=== PATIENT | male | born 1955 | race Caucasian/White ===

== ENCOUNTER 2019-01-03 09:29 | Outpatient (CLI) | payer MEDICARE ==
--- NOTE | 2019-01-03 12:06 | HP ---
HISTORY OF PRESENT ILLNESS: Mr. Tony Chase is a very pleasant 63-year-old gentleman, who presents to the [facility] for evaluation of an ulceration of the plantar surface of the right forefoot. The ulceration is located over the right medial forefoot. The patient states that the ulceration began approximately 2 weeks ago when he was walking in socks without shoes. The patient states that he noted that his sock was bloody and then noted the presence of the wound over the right medial plantar forefoot. The patient states that he has been receiving dressing changes 3 times per week with the assistance of Home Health for venous ulcerations. The patient specifically has been receiving dressing changes of Aquacel for the venous ulcerations. When the wound began, he states the ulceration of the right medial plantar forefoot was also dressed with Aquacel. The patient was referred to the Wound Center by Dr. Almanzar on 12/27/2018. PAST MEDICAL HISTORY: 1. Diabetes mellitus. 2. Hypertension. 3. Coronary artery disease. 4. Obstructive sleep apnea. 5. Peripheral vascular disease. 6. Gastroesophageal reflux disease. PAST SURGICAL HISTORY: 1. Coronary artery bypass grafting x4. 2. Bilateral hallux amputations. 3. Left second toe amputation. MEDICATIONS: 1. Torsemide. 2. Jardiance. 3. Coreg. 4. Pepcid. 5. Metformin. 6. Plavix. 7. Zetia. 8. Atorvastatin. 9. Gabapentin. 10. Lisinopril. 11. Sertraline. 12. Potassium chloride. 13. Aspirin 81 mg. 14. Chantix. ALLERGIES: PENICILLIN. SOCIAL HISTORY: Social history is significant for tobacco use of 1 to 2 packs of cigarettes per day for 50 years. The patient states that he stopped smoking 4 weeks ago. The patient admits to the moderate consumption of alcohol in the past, specifically in his teens and 20s. FAMILY HISTORY: Family history is significant for coronary artery disease. The patient states that his mother, father, and sister were all diagnosed with coronary artery disease. Family history is also significant for diabetes mellitus. The patient states that his mother and father were both diagnosed with diabetes mellitus. PHYSICAL EXAMINATION: VITAL SIGNS: Temperature 98.7, pulse 65, respirations 22, and blood pressure 141/72. Accu-Chek 142. GENERAL: A 63-year-old gentleman, lying on stretcher in examination room, in no acute distress. HEENT: Normocephalic and atraumatic. NECK: No nuchal rigidity. CHEST: Clear to auscultation. CV: Regular rate and rhythm. ABDOMEN: Soft. EXTREMITIES: An ulceration of the plantar surface of the right medial forefoot is present, which measures approximately 0.3 x 0.5 cm. Granulation tissue is present within the wound margins. Necrotic and nonviable tissue present within the wound margins was debrided with an excisional full-thickness debridement with the use of a curette. Callus desiccated tissue and undermining associated with the ulceration were eliminated with the use of scissors. No purulent drainage is associated with the granulating wound. No erythema of the skin surrounding the wound is present. No maceration of the skin of the periwound is noted. A posterior tibial pulse is easily palpable on the left. [id number] edema of the right lower extremity is appreciated on exam today. NEUROLOGIC: Grossly nonfocal. ASSESSMENT AND PLAN: 1. Ulceration of right plantar medial forefoot as described above. Dressing changes of Aquacel are to be performed 3 times per week after cleansing and irrigation with the assistance of Home Health. Home Health is to continue dressing changes of Aquacel for the venous ulcerations of the right lower leg. No antibiotics will be prescribed today based upon the appearance of the wound. I will see Mr. Chase again in 1 week. The patient understands and is in agreement with the preceding treatment plan. 2. Diabetes mellitus. The patient's Accu-Chek in clinic today is 142. The patient has been told that for optimal wound healing, his blood glucoses should remain below 150. 3. Hypertension. 4. Coronary artery disease. 5. Obstructive sleep apnea. 6. Peripheral vascular disease. 7. Gastroesophageal reflux disease. Job ID: [id number]
[2019-01-03] MEDS ORDERED: Sodium Chloride 0.9% 15 ML NEB ONE (18:00)
== END 2019-01-03 09:30 | disposition home or self-care (01) ==
LOC: WCC 09:29
PROVIDERS: ATTEND Family Medicine
DX: S91.311S Laceration without foreign body, right foot, sequela (principal)
CPT/HCPCS: 11042; 99203; A4218; G0463

== ENCOUNTER 2019-02-12 12:59 | Outpatient (CLI) | payer MEDICARE ==
--- NOTE | 2019-02-12 14:44 | PRG ---
DATE OF SERVICE: 02/12/2019 HISTORY: Mr. Tony Chase is a very pleasant 63-year-old gentleman, who presents to the Wound Center for evaluation of an ulceration of the plantar surface of the right forefoot. The ulceration is located over the right medial forefoot. The patient previously stated that the ulceration began approximately 2 weeks prior to his initial presentation to the Wound Center when he was walking in socks without shoes. The patient stated that he noted that his sock was bloody and then noted the presence of the wound over the right medial plantar forefoot. The patient stated that he had been receiving dressing changes 3 times per week with the assistance of Home Health for venous ulcerations. The patient specifically had been receiving dressing changes of Aquacel for the venous ulcerations. When the wound of the right forefoot was noted, he stated the ulceration of the right medial plantar forefoot was also dressed with Aquacel. The patient was referred to the Wound Center by Dr. Almanzar on 12/27/2018. PHYSICAL EXAMINATION: VITAL SIGNS: Temperature 97.8, pulse 62, respirations 18, and blood pressure 138/62. Accu-Chek 147. EXTREMITIES: An ulceration of the plantar surface of the right medial forefoot is present, which measures approximately 0.9 x 0.6 cm. The dimensions of the wound at the time of the patient's visit on 01/29/2019 were approximately 1.0 x 0.5 cm. Granulation tissue is present within the wound margins. Necrotic and nonviable tissue present within the wound margins was debrided with an excisional full-thickness debridement with the use of a curette. Callus desiccated tissue and undermining at the periphery of the wound were eliminated with the use of scissors. No purulent drainage is associated with the wound. No erythema of the skin surrounding the wound is present. No maceration of the skin of the periwound is noted. A posterior tibial pulse is easily palpable on the right. No significant edema of the right foot or lower leg is present on exam today. ASSESSMENT AND PLAN: 1. Ulceration of right medial plantar forefoot as described above. The venous ulcerations of the right lower leg have healed completely and remain healed. Dressing changes of Xeroform gauze for the right medial plantar forefoot wound will be continued. Webril and the my[employer]arrister Coban 2 Layer Compression System will also be applied to the right foot and lower leg. The preceding dressing changes are to be performed 1 to 2 times per week after cleansing and irrigation with the assistance of Home Health. I will see Mr. Chase again in 2 weeks. 2. Diabetes mellitus. The patient's Accu-Chek in clinic today is 147. The patient has been reminded that for optimal wound healing, his blood glucoses should remain below 150. 3. Hypertension. 4. Coronary artery disease. 5. Obstructive sleep apnea. 6. Peripheral vascular disease. 7. Gastroesophageal reflux disease. Job ID: [id number]
== END 2019-02-12 13:00 | disposition home or self-care (01) ==
LOC: WCC 12:59
PROVIDERS: ATTEND Family Medicine
DX: E11.621 Type 2 diabetes mellitus with foot ulcer (principal); L97.519 Non-pressure chronic ulcer of other part of right foot with unspecified severity; I10 Essential (primary) hypertension; I25.10 Atherosclerotic heart disease of native coronary artery without angina pectoris; G47.33 Obstructive sleep apnea (adult) (pediatric); K21.9 Gastro-esophageal reflux disease without esophagitis; E11.51 Type 2 diabetes mellitus with diabetic peripheral angiopathy without gangrene
CPT/HCPCS: 11042

== ENCOUNTER 2019-02-26 15:10 | Outpatient (CLI) | payer MEDICARE ==
--- NOTE | 2019-02-26 15:04 | PRG ---
DATE OF SERVICE: 02/26/2019 HISTORY: Mr. Tony Chase is a very pleasant 63-year-old gentleman, who presents to the Wound Center for evaluation of an ulceration of the plantar surface of the right forefoot. The ulceration is located over the right medial forefoot. The patient previously stated that the ulceration began approximately 2 weeks prior to his initial presentation to the Wound Center when he was walking in socks without shoes. The patient stated that he noted that his sock was bloody and then noted the presence of the wound over the right medial plantar forefoot. The patient stated that he had been receiving dressing changes 3 times per week with the assistance of Home Health for venous ulcerations. The patient specifically had been receiving dressing changes of Aquacel for the venous ulcerations. When the wound of the right forefoot was noted, he stated, the ulceration of the right medial plantar forefoot was also dressed with Aquacel. The patient was referred to the Wound Center by Dr. Almanzar on 12/27/2018. PHYSICAL EXAMINATION: VITAL SIGNS: Temperature 97.9, pulse 73, respirations 22, and blood pressure 118/76. Accu-Chek 146. EXTREMITIES: An ulceration of the plantar surface of the right medial forefoot is present, which measures approximately 0.6 x 0.8 cm. The dimensions of the wound at the time of the patient's visit on 02/12/2019 were approximately 0.9 x 0.6 cm. Granulation tissue is present within the wound margins. Necrotic and nonviable tissue present within the wound margins was debrided with an excisional full-thickness debridement with the use of a curette. Callus desiccated tissue and undermining at the periphery of the wound were eliminated with the use of scissors. Postdebridement measurements were approximately 1.3 x 0.7 cm. No purulent drainage is associated with the wound. No erythema of the skin surrounding the wound is present. No maceration of the skin of the periwound is noted. No significant edema of the right foot or lower leg is present on exam today. ASSESSMENT AND PLAN: 1. Ulceration of right medial plantar forefoot as described above. The venous ulcerations of the right lower leg have healed completely and remains healed. After copious irrigation of the ulceration of the right medial plantar forefoot with normal saline, MatriStem sheet 3 x 3.5 cm was applied to the wound bed followed by Adaptic, ABD, Webril, and the 3M Coban 2 Layer Compression System. The MatriStem sheet was secured to the periwound with the use of Mastisol and Steri Strips. Orders will be transmitted to Home Health for a dressing change of Adaptic followed by an ABD, Webril, and the 3M Coban 2 Layer Compression System in 1 week. I will see Mr. Chase again in 2 weeks. At this time, consideration will be given to another placement of MatriStem. 2. Diabetes mellitus. The patient's Accu-Chek in clinic today is 146. The patient has been reminded that for optimal wound healing, his blood glucoses should remain below 150. 3. Hypertension. 4. Coronary artery disease. 5. Obstructive sleep apnea. 6. Peripheral vascular disease. 7. Gastroesophageal reflux disease. Job ID: [id number]
[2019-02-26] MEDS ORDERED: Sodium Chloride 0.9% 15 ML NEB ONE (17:24)
== END 2019-02-26 15:11 | disposition home or self-care (01) ==
LOC: WCC 15:10
PROVIDERS: ATTEND Family Medicine
DX: E11.621 Type 2 diabetes mellitus with foot ulcer (principal); L97.419 Non-pressure chronic ulcer of right heel and midfoot with unspecified severity; I10 Essential (primary) hypertension; I25.10 Atherosclerotic heart disease of native coronary artery without angina pectoris; G47.33 Obstructive sleep apnea (adult) (pediatric); I73.9 Peripheral vascular disease, unspecified; K21.9 Gastro-esophageal reflux disease without esophagitis
CPT/HCPCS: A4218; C5275; Q4166-KX-JC

== ENCOUNTER 2019-03-12 15:57 | Outpatient (CLI) | payer MEDICARE ==
--- NOTE | 2019-03-12 14:27 | PRG ---
DATE OF SERVICE: 03/12/2019 HISTORY: Mr. Tony Chase is a very pleasant 63-year-old gentleman, accompanied by his , who presents to the Wound Center for evaluation of an ulceration of the plantar surface of the right forefoot. The ulceration is located over the right medial forefoot. Previously, the patient stated that the ulceration began approximately 2 weeks prior to his initial presentation to the Wound Center when he was walking in socks without shoes. The patient stated that he noted that his sock was bloody and then noted the presence of the wound over the right medial plantar forefoot. The patient stated that he had been receiving dressing changes 3 times per week with the assistance of Home Health for venous ulcerations. The patient specifically had been receiving dressing changes of Aquacel for the venous ulcerations. When the wound of the right forefoot was noted, he stated the ulceration of the right medial plantar forefoot was also dressed with Aquacel. The patient was referred to the Wound Center by Dr. Almanzar on 12/27/2018. The patient is presently receiving treatment with MatriStem sheet for the ulceration over the plantar surface of the right medial forefoot. PHYSICAL EXAMINATION: VITAL SIGNS: Temperature 97.9, pulse 63, respirations 18, and blood pressure 125/59. Accu-Chek 144. EXTREMITIES: An ulceration of the plantar surface of the right medial forefoot is present, which measures approximately 0.3 x 0.4 cm. The dimensions of the wound at the time of the patient's visit on 02/26/2019 were approximately 0.6 x 0.8 cm. Granulation tissue is present within the wound margins. Necrotic and nonviable tissue present within the wound margins was debrided with an excisional full-thickness debridement with the use of a curette. Callus desiccated tissue and undermining at the periphery of the wound were eliminated with the use of scissors. Post debridement measurements were approximately 0.7 x 0.6 cm. No purulent drainage is associated with the wound. No erythema of the skin surrounding the wound is present. No maceration of the skin of the periwound is noted. No significant edema of the right foot or lower leg is present on exam today. MatriStem sheet 3 x 3.5 cm was applied to wound bed followed by Adaptic, 4x4s, Webril, and the 3M Coban 2 Layer Compression System. The MatriStem sheet was secured to the periwound with the use of Mastisol and Steri-Strips. Orders will be transmitted to Home Health for a dressing change of Adaptic followed by 4x4s, Webril, and 3M Coban 2 Layer Compression System in 1 week. I will see Mr. Chase again in 2 weeks. At this time, consideration will be given to another placement of MatriStem. ASSESSMENT AND PLAN: 1. Diabetes mellitus. The patient's Accu-Chek in clinic today is 144. The patient has been reminded that for optimal wound healing, his blood glucoses should remain below 150. 2. Hypertension. 3. Coronary artery disease. 4. Obstructive sleep apnea. 5. Peripheral vascular disease. 6. Gastroesophageal reflux disease. Job ID: [id number]
[~2019-03-12 15:57] MED LIST: Sodium Chloride 0.9% 15 ML NEB ONE
== END 2019-03-12 15:58 | disposition home or self-care (01) ==
LOC: WCC 15:57
PROVIDERS: ATTEND Family Medicine
DX: E11.621 Type 2 diabetes mellitus with foot ulcer (principal); L97.419 Non-pressure chronic ulcer of right heel and midfoot with unspecified severity; I10 Essential (primary) hypertension; I25.10 Atherosclerotic heart disease of native coronary artery without angina pectoris; G47.33 Obstructive sleep apnea (adult) (pediatric); I73.9 Peripheral vascular disease, unspecified; K21.9 Gastro-esophageal reflux disease without esophagitis
CPT/HCPCS: A4218; Q4166-KX-JC

== ENCOUNTER 2019-03-26 14:03 | Outpatient (CLI) | payer MEDICARE ==
--- NOTE | 2019-03-26 14:46 | PRG ---
DATE OF SERVICE: 03/26/2019 HISTORY: Mr. Tony Chase is a very pleasant 63-year-old gentleman, accompanied by his , who presents to the Wound Center for evaluation of an ulceration of the plantar surface of the right forefoot. The ulceration is located over the right medial forefoot. Previously, the patient stated that the ulceration began approximately 2 weeks prior to his initial presentation to the Wound Center when he was walking in socks without shoes. The patient stated that he noted that his sock was bloody and then noted the presence of the wound over the right medial plantar forefoot. The patient stated that he had been receiving dressing changes 3 times per week with the assistance of Home Health for venous ulcerations. The patient specifically had been receiving dressing changes of Aquacel for the venous ulcerations. When the wound of the right forefoot was noted, he stated the ulceration of the right medial plantar forefoot was also dressed with Aquacel. The patient was referred to the Wound Center by Dr. Almanzar on 12/27/2018. The patient has received treatment with MatriStem sheet for the ulceration over the plantar surface of the right medial forefoot. PHYSICAL EXAMINATION: VITAL SIGNS: Temperature 98.2, pulse 54, respirations 19, and blood pressure 137/63. Accu-Chek 133. EXTREMITIES: An ulceration of the plantar surface of the right medial forefoot is present, which measures approximately 0.4 x 0.6 cm. The dimensions of the wound at the time of the patient's visit on 03/12/2019 were approximately 0.3 x 0.4 cm. Granulation tissue is present within the wound margins. Necrotic and nonviable tissue present within the wound margins is debrided with an excisional full-thickness debridement with the use of a curette. Callus desiccated tissue and undermining at the periphery of the wound are eliminated with the use of scissors. Post-debridement measurements are approximately 0.6 x 0.8 cm. No purulent drainage is associated with the wound. No erythema of the skin surrounding the wound is present. No maceration of the skin of the periwound is noted. No significant edema of the right foot or lower leg is present on exam today. ASSESSMENT AND PLAN: 1. Ulceration of right medial plantar forefoot as described above. The venous ulcerations of the right lower leg have healed completely and remained healed. Promogran will be applied to the ulceration of the plantar surface of the right forefoot today. Secondary dressings will consist of foam, followed by Webril and the 3M Coban 2 Layer Compression System. Orders will be transmitted to Home Health for the preceding dressing changes 2 times per week after cleansing and irrigation. Plain films of the right foot will be obtained today. If plain films reveal no findings consistent with osteomyelitis, I have explained to the patient and his consideration will need to be given to MRI of the right foot. The patient states he will see his ethical hacker for new diabetic shoes with inserts. I will see Mr. Chase again after imaging of the right foot is complete. At this time, consideration will be given to the resumption of treatment with a skin substitute. The patient and his understand and are in agreement with the preceding treatment plan. 2. Diabetes mellitus. The patient's Accu-Chek in clinic today is 133. The patient has been reminded that for optimal wound healing, his blood glucoses should remain below 150. 3. Hypertension. 4. Coronary artery disease. 5. Obstructive sleep apnea. 6. Peripheral vascular disease. 7. Gastroesophageal reflux disease. Job ID: [id number]
--- NOTE | 2019-03-26 15:06 | RAD ---
3 views of the right foot: 03/26/2019 HISTORY: Chronic wound, possible osteomyelitis FINDINGS: There is prominent degenerative change involving the midfoot and subtalar joint. There is e nthesophyte formation at the insertion of the Achilles tendon and origin of the plantar aponeurosis. The patient is status post resection of the first digit at the distal aspect of the first metatarsal. Just distal to the residual first metatarsal is a linear metallic soft tissue foreign body measuring 8 mm. Soft tissues of the second through fifth toes are not well assessed distally secondar y to technique. No discrete bone destruction. IMPRESSION: Postoperative change as detailed above. Suboptimal assessment of the soft tissues involvi ng the distal aspect of the second through fifth toes. Metallic soft tissue foreign body seen just distal to the residual first metatarsal. If there is clinical concern for osteomyelitis, MRI advised.
== END 2019-03-26 14:04 | disposition home or self-care (01) ==
LOC: WCC 14:03 → RAD 14:04
PROVIDERS: ATTEND Family Medicine
DX: E11.621 Type 2 diabetes mellitus with foot ulcer (principal); L97.529 Non-pressure chronic ulcer of other part of left foot with unspecified severity; Z98.890 Other specified postprocedural states
CPT/HCPCS: A4218

== ENCOUNTER 2019-04-09 13:49 | Outpatient (CLI) | payer MEDICARE ==
--- NOTE | 2019-04-09 14:29 | PRG ---
DATE OF SERVICE: 04/09/2019 HISTORY: Mr. Tony Chase is a very pleasant 63-year-old gentleman, accompanied by his who presents to the Wound Center for evaluation of an ulceration of the plantar surface of the right forefoot. Since the patient's last visit, Mr. Chase has undergone MRI of the right foot. The patient states that at the time of his visit with Dr. Davenport also since the patient was last seen in the Wound Center, he was told by Dr. Davenport that the MRI of the right foot showed no findings consistent with osteomyelitis. The patient states that when he was seen by Dr. Davenport, his shoes with inserts were adjusted so as to provide for greater offloading of the right foot in the region of the wound. The patient continues to receive assistance with dressing changes by Home Health. PHYSICAL EXAMINATION: VITAL SIGNS: Temperature 98.1, pulse 50, respirations 18, blood pressure 121/54. Accu-Chek 140. EXTREMITIES: An ulceration of the plantar surface of the right medial forefoot is present, which measures approximately 0.6 x 0.8 cm. The depth of the wound is approximately 1.2 cm. Granulation tissue is present within the wound margins. No purulent drainage is associated with the wound. No erythema of the skin surrounding the wound is present. No maceration of the skin of the periwound is noted. No significant edema of the right foot or lower leg is present on exam today. After copious irrigation of the wound bed with normal saline, EpiFix 18 mm was applied to the wound bed of the ulceration followed by the wound VAC. ASSESSMENT AND PLAN: 1. Ulceration of right medial plantar forefoot as described above. EpiFix was applied to the wound bed of the ulceration today. The patient will receive negative pressure therapy in conjunction with treatment with EpiFix. An Danny bandage will be applied to the right foot and lower leg over the wound VAC. I will see Mr. Chase again in 1 week. At this time, consideration will be given to another placement of EpiFix. The results of the MRI of the right foot will also be obtained. 2. Diabetes mellitus. The patient's Accu-Chek in clinic today is 140. The patient has been reminded that for optimal wound healing his blood glucoses should remain below 150. 3. Hypertension. 4. Coronary artery disease. 5. Obstructive sleep apnea. 6. Peripheral vascular disease. 7. Gastroesophageal reflux disease. Job ID: [id number]
== END 2019-04-09 13:50 | disposition home or self-care (01) ==
LOC: WCC 13:49
PROVIDERS: ATTEND Family Medicine
DX: E11.621 Type 2 diabetes mellitus with foot ulcer (principal); L97.519 Non-pressure chronic ulcer of other part of right foot with unspecified severity; I10 Essential (primary) hypertension; I25.10 Atherosclerotic heart disease of native coronary artery without angina pectoris; G47.33 Obstructive sleep apnea (adult) (pediatric); I73.9 Peripheral vascular disease, unspecified; K21.9 Gastro-esophageal reflux disease without esophagitis
CPT/HCPCS: A4218; Q4186-KX-JC

== ENCOUNTER 2019-04-16 14:09 | Outpatient (CLI) | payer MEDICARE ==
--- NOTE | 2019-04-16 17:48 | PRG ---
DATE OF SERVICE: 04/16/2019 HISTORY: Mr. Tony Chase is a very pleasant 63-year-old gentleman, accompanied by his , who presents to the Wound Center for evaluation of an ulceration of the plantar surface of the right forefoot. MRI of the right foot was recently obtained, which showed no findings suggestive of osteomyelitis of the forefoot. At the time of the patient's last visit, the patient stated that when he was recently seen by Dr. Davenport, his shoes with inserts were adjusted so as to provide for greater offloading of the right foot in the region of his wound. The patient is presently receiving treatment with EpiFix in conjunction with negative pressure therapy for the ulceration of the right medial plantar forefoot. PHYSICAL EXAMINATION: VITAL SIGNS: Temperature 98.1, pulse 55, respirations 20, blood pressure 128/58. Accu-Chek 229. EXTREMITIES: An ulceration of the plantar surface of the right medial forefoot is present, which measures approximately 0.7 x 0.4 cm. The dimensions of the wound at the time of the patient's last visit were approximately 0.6 x 0.8 cm. The depth of the wound is approximately 1.3 cm. Granulation tissue is present within the wound margins. No purulent drainage is associated with the wound. No erythema of the skin surrounding the wound is present. No maceration of the skin of the periwound is noted. No significant edema of the right foot or lower leg is present on exam today. After copious irrigation of the wound bed with normal saline, EpiFix, 2 x 2 cm, was applied to the wound bed of the ulceration followed by the wound VAC. ASSESSMENT AND PLAN: 1. Ulceration of right medial plantar forefoot as described above. EpiFix was applied to the wound bed of the ulceration today. The patient will continue to receive negative pressure therapy in conjunction with treatment with EpiFix. The 3M Coban 2 Layer Compression System will be applied to the right foot and lower leg over the wound VAC. I will see Mr. Chase again in 1 week. At this time, consideration will be given to another placement of EpiFix in conjunction with negative pressure therapy. 2. Diabetes mellitus. The patient's Accu-Chek in clinic today is 229. The patient has been reminded that for optimal wound healing, his blood glucoses should remain below 150. 3. Hypertension. 4. Coronary artery disease. 5. Obstructive sleep apnea. 6. Peripheral vascular disease. 7. Gastroesophageal reflux disease. Job ID: [id number]
== END 2019-04-16 14:10 | disposition home or self-care (01) ==
LOC: WCC 14:09
PROVIDERS: ATTEND Family Medicine
DX: E11.621 Type 2 diabetes mellitus with foot ulcer (principal); L97.419 Non-pressure chronic ulcer of right heel and midfoot with unspecified severity; I10 Essential (primary) hypertension; I25.10 Atherosclerotic heart disease of native coronary artery without angina pectoris; G47.33 Obstructive sleep apnea (adult) (pediatric); I73.9 Peripheral vascular disease, unspecified; K21.9 Gastro-esophageal reflux disease without esophagitis
CPT/HCPCS: A4218

== ENCOUNTER 2019-04-23 14:07 | Outpatient (CLI) | payer MEDICARE ==
[2019-04-23] MEDS ORDERED: Sodium Chloride 0.9% 15 ML NEB ONE (15:00)
--- NOTE | 2019-04-23 16:43 | PRG ---
DATE OF SERVICE: 04/23/2019 SUBJECTIVE: Mr. Tony Chase is a very pleasant 63-year-old gentleman, accompanied by his , who presents [facility] for evaluation of an ulceration of the plantar surface of the right forefoot. MRI of the right foot was obtained on 04/02/2019, which showed no overt noncontrast MR findings suggestive of osteomyelitis. The patient has been seen by Dr. Davenport and his shoes with inserts adjusted, so as to provide for greater offloading of the right foot in the region of his wound. The patient is currently receiving treatment with EpiFix in conjunction with negative pressure therapy for the ulceration of the right medial plantar forefoot. OBJECTIVE: VITAL SIGNS: Temperature 97.6, pulse 49, respirations 24, blood pressure 132/62. Accu-Chek 161. EXTREMITIES: An ulceration of the plantar surface of the right medial forefoot is present, which measures approximately 0.6 x 0.4 cm. The dimensions of the wound at the time of the patient's last visit were approximately 0.7 x 0.4 cm. The depth of the wound is approximately 0.7 cm. The depth of the wound at the time of the patient's last visit was approximately 1.3 cm. Granulation tissue is present within the wound margins. No purulent drainage is associated with the wound. No erythema of the skin surrounding the wound is present. Maceration of the skin of the periwound is noted. No significant edema of the right foot or lower leg is present on exam today. ASSESSMENT AND PLAN: 1. Ulceration of right medial plantar forefoot as described above. In view of the maceration of the skin of the periwound of the right medial plantar forefoot ulceration, dressing changes of Hydrofera Blue, followed by an ABD and 3M Coban 2 Layer Compression System will be initiated today. The patient is to receive the preceding dressing changes 2 times per week after cleansing and irrigation with the assistance of Home Health. I will see Mr. Chase again in 2 weeks. At this time, consideration will be given to the resumption of treatment with EpiFix in conjunction with negative pressure therapy. The patient will be seen by Dr. Davenport in 1 week. 2. Diabetes mellitus. The patient's Accu-Chek in clinic today is 161. The patient has been reminded that for optimal wound healing, his blood glucoses should remain below 150. 3. Hypertension. 4. Coronary artery disease. 5. Obstructive sleep apnea. 6. Peripheral vascular disease. 7. Gastroesophageal reflux disease. Job ID: [id number]
== END 2019-04-23 14:08 | disposition home or self-care (01) ==
LOC: WCC 14:07
PROVIDERS: ATTEND Family Medicine
DX: E11.621 Type 2 diabetes mellitus with foot ulcer (principal); L97.419 Non-pressure chronic ulcer of right heel and midfoot with unspecified severity; I10 Essential (primary) hypertension; I25.10 Atherosclerotic heart disease of native coronary artery without angina pectoris; I73.9 Peripheral vascular disease, unspecified; K21.9 Gastro-esophageal reflux disease without esophagitis; G47.33 Obstructive sleep apnea (adult) (pediatric)
CPT/HCPCS: A4218

== ENCOUNTER 2019-05-07 14:02 | Outpatient (CLI) | payer MEDICARE ==
--- NOTE | 2019-05-07 14:56 | PRG ---
DATE OF SERVICE: 05/07/2019 HISTORY: Mr. Tony Chase is a very pleasant 63-year-old gentleman, accompanied by his , who presents to the [facility] for evaluation of an ulceration of the plantar surface of the right forefoot. MRI of the right foot was obtained on 04/02/2019, which showed no overt noncontrast MR findings suggestive of osteomyelitis. The patient has been seen by Dr. Davenport and his shoes with inserts adjusted, so as to provide for greater offloading of the right foot in the region of his wound. The patient has received treatment with EpiFix in conjunction with negative pressure therapy for the ulceration of the right medial plantar forefoot. PHYSICAL EXAMINATION: VITAL SIGNS: Temperature 98.3, pulse 50, respirations 26, blood pressure 151/68. Accu-Chek 120. EXTREMITIES: An ulceration of the plantar surface of the right medial forefoot is present, which measures approximately 0.6 x 0.6 cm. The depth of the wound is approximately 0.5 cm. Granulation tissue is present within the wound margins. Necrotic and nonviable tissue present within the wound margins was debrided with an excisional full-thickness debridement with the use of a curette. Desiccated tissue at the periphery of the wound was excised with the use of scissors. No purulent drainage is associated with the wound. No erythema of the skin surrounding the wound is present. No maceration of the skin of the periwound is noted. No significant edema of the right foot or lower leg is present on exam today. After copious irrigation of the wound bed with normal saline, EpiFix 18 mm was applied to the wound bed, followed by Adaptic, an ABD, Webril, and the 3M Coban 2 Layer Compression System. The EpiFix was secured to the wound bed and periwound with the use of Steri-Strips and Mastisol. ASSESSMENT AND PLAN: 1. Ulceration of right medial plantar forefoot as described above. EpiFix was applied to the ulceration of the right medial plantar forefoot today, followed by Adaptic, an ABD, Webril, and the 3M Coban 2 Layer Compression System. As stated above, the EpiFix was secured to the wound bed and periwound with the use of Steri-Strips and Mastisol. I will see Mr. Chase again in 1 week. At this time, consideration will be given to another placement of EpiFix. 2. Diabetes mellitus. The patient's Accu-Chek in clinic today is 120. The patient has been reminded that for optimal wound healing, his blood glucoses should remain below 150. 3. Hypertension. 4. Coronary artery disease. 5. Obstructive sleep apnea. 6. Peripheral vascular disease. 7. Gastroesophageal reflux disease. Job ID: [id number]
[2019-05-07] MEDS ORDERED: Sodium Chloride 0.9% 15 ML NEB ONE (16:54)
== END 2019-05-07 14:03 | disposition home or self-care (01) ==
LOC: WCC 14:02
PROVIDERS: ATTEND Family Medicine
DX: E11.621 Type 2 diabetes mellitus with foot ulcer (principal); L97.419 Non-pressure chronic ulcer of right heel and midfoot with unspecified severity; I10 Essential (primary) hypertension; I25.10 Atherosclerotic heart disease of native coronary artery without angina pectoris; G47.33 Obstructive sleep apnea (adult) (pediatric); I73.9 Peripheral vascular disease, unspecified; K21.9 Gastro-esophageal reflux disease without esophagitis
CPT/HCPCS: A4218

== ENCOUNTER 2019-05-17 15:49 | Outpatient (CLI) | payer MEDICARE ==
--- NOTE | 2019-05-17 16:47 | PRG ---
DATE OF SERVICE: 05/17/2019 HISTORY: Mr. Tony Chase is a very pleasant 63-year-old gentleman accompanied by his , who presents to the [facility]ound Center for evaluation of an ulceration of the plantar surface of the right forefoot. MRI of the right foot was obtained on 04/02/2019, which showed no overt noncontrast MR findings suggestive of osteomyelitis. The patient has been seen by Dr. Davenport and his shoes with inserts adjusted, so as to provide for greater offloading of the right foot in the region of the wound. The patient has received treatment with EpiFix in conjunction with negative pressure therapy for the ulceration of the right medial plantar forefoot. Presently, the patient is receiving treatment with EpiFix in conjunction with the 3M Coban 2 Layer Compression System. PHYSICAL EXAMINATION: VITAL SIGNS: Temperature 97.7, pulse 53, respirations 19, blood pressure 154/65, Accu-Chek . EXTREMITIES: An ulceration of the plantar surface of the right medial forefoot is present, which measures approximately 0.6 x 0.4 cm. The depth of the wound is approximately 0.5 cm. Granulation tissue is present within the wound margins. Necrotic and nonviable tissue present within the wound margins was debrided with an excisional full-thickness debridement with the use of a curette. Callus and desiccated tissue and undermining at the periphery of the wound were eliminated with the use of scissors. No purulent drainage is associated with the wound. No erythema of the skin surrounding the wound is present. No maceration of the skin of the periwound is noted. No significant edema of the right foot or lower leg is present on exam today. After copious irrigation of the wound bed with normal saline, EpiFix 18 mm was applied to the wound bed followed by Adaptic, an ABD, Webril, and the 3M Coban 2 Layer Compression System. EpiFix was secured to the wound bed and periwound with the use of Steri-Strips and Mastisol. ASSESSMENT AND PLAN: 1. Ulceration of right medial plantar forefoot as described above. EpiFix was applied to the ulceration of the right medial plantar forefoot today followed by Adaptic, an ABD, Webril, and the 3M Coban 2 Layer Compression System. As stated above, the EpiFix was secured to the wound bed and periwound with the use of Steri-Strips and Mastisol. I will see Mr. Chase again in 1 week. At this time, consideration will be given to another placement of EpiFix. 2. Diabetes mellitus. The patient's Accu-Chek in clinic today is . The patient has been reminded that for optimal wound healing, his blood glucoses should remain below 150. 3. Hypertension. 4. Coronary artery disease. 5. Obstructive sleep apnea. 6. Peripheral vascular disease. 7. Gastroesophageal reflux disease. Job ID: [id number]
== END 2019-05-17 15:50 | disposition home or self-care (01) ==
LOC: WCC 15:49
PROVIDERS: ATTEND Family Medicine
DX: E11.621 Type 2 diabetes mellitus with foot ulcer (principal); L97.519 Non-pressure chronic ulcer of other part of right foot with unspecified severity; I25.10 Atherosclerotic heart disease of native coronary artery without angina pectoris; G47.33 Obstructive sleep apnea (adult) (pediatric); E11.51 Type 2 diabetes mellitus with diabetic peripheral angiopathy without gangrene; K21.9 Gastro-esophageal reflux disease without esophagitis; I10 Essential (primary) hypertension
CPT/HCPCS: A4218; Q4186-KX-JC

== ENCOUNTER 2019-05-24 14:02 | Outpatient (CLI) | payer MEDICARE ==
--- NOTE | 2019-05-24 15:50 | PRG ---
DATE OF SERVICE: 05/24/2019 HISTORY: Mr. Tony Chase is a very pleasant 63-year-old gentleman, accompanied by his who presents to the Wound Center for evaluation of an ulceration of the plantar surface of the right forefoot. MRI of the right foot was obtained on 04/02/2019, which showed no overt noncontrast MR findings suggestive of osteomyelitis. The patient has been seen by Dr. Davenport and issues with inserts adjusted, so as to provide for greater offloading of the right foot in the region of the wound. The patient has received treatment with EpiFix in conjunction with negative pressure therapy for the ulceration of the right medial plantar forefoot. Currently, the patient is receiving treatment with EpiFix in conjunction with the 3M Coban 2 Layer Compression System. OBJECTIVE: VITAL SIGNS: Temperature 98.0, pulse 53, respirations 18, blood pressure 119/57. Accu-Chek 147. EXTREMITIES: An ulceration of the plantar surface of the right medial forefoot is present, which measures approximately 0.6 x 0.4 cm. Granulation tissue is present within the wound margins. Necrotic and nonviable tissue present within the wound margins was debrided with an excisional full-thickness debridement with the use of a curette. Callus desiccated tissue and undermining at the periphery of the wound were eliminated with the use of scissors. No purulent drainage is associated with the wound. No erythema of the skin surrounding the wound is present. No maceration of the skin of the periwound is noted. No significant edema of the right foot or lower leg is present on exam today. A new wound over the dorsum of the right medial foot is present which measures approximately 0.6 x 0.3 cm. A small amount of granulation tissue is visible within the wound margins. No purulent drainage is associated with the wound. No maceration of the skin of the periwound is noted. No significant edema of the right foot or lower leg is present on exam today. After copious irrigation of both wound beds with normal saline, EpiFix 18 mm was divided into two pieces and applied to each wound bed followed by Adaptic, ABD, Webril and the 3M Coban 2 Layer Compression System. EpiFix was secured to the wound bed of each wound and periwound with the use of Steri-Strips and Mastisol. ASSESSMENT AND PLAN: 1. Ulceration of right medial plantar forefoot and ulceration of dorsum of right medial foot. As described above, EpiFix was applied to the ulceration of both wounds today followed by MARCOS Bruner, Kaycee, and the [employer] Coban 2 Layer Compression System. As stated above, EpiFix was secured to the wound bed and periwound of each wound with the use of Steri-Strips and Mastisol. Orders will be transmitted to Home Health for weekly dressing changes. The patient states he will follow up with Dr. Davenport and subsequently follow up in the wound center. The patient and his understand and are in agreement with the preceding treatment plan. 2. Diabetes mellitus. The patient's Accu-Chek in clinic today is 147. The patient has been reminded that for optimal wound healing, his blood glucoses should remain below 150. 3. Hypertension. 4. Coronary artery disease. 5. Obstructive sleep apnea. 6. Peripheral vascular disease. 7. Gastroesophageal reflux disease. Job ID: [id number]
== END 2019-05-24 14:03 | disposition home or self-care (01) ==
LOC: WCC 14:02
PROVIDERS: ATTEND Family Medicine
DX: E11.621 Type 2 diabetes mellitus with foot ulcer (principal); L97.419 Non-pressure chronic ulcer of right heel and midfoot with unspecified severity; I25.10 Atherosclerotic heart disease of native coronary artery without angina pectoris; E11.51 Type 2 diabetes mellitus with diabetic peripheral angiopathy without gangrene; G47.33 Obstructive sleep apnea (adult) (pediatric); K21.9 Gastro-esophageal reflux disease without esophagitis; I10 Essential (primary) hypertension
CPT/HCPCS: Q4186-KX-JC

== ENCOUNTER 2019-10-11 22:03 | Observation (INO) | payer MEDICARE, OTHER ==
[2019-10-12 00:47] LABS: Troponin I Less than 0.010 ng/mL (< 0.028)
[2019-10-12] MEDS ORDERED: Ondansetron PF 4 MG/2 ML Vial IVP PRN (01:16)
[2019-10-12] MEDS ORDERED: Acetaminophen 325 MG TAB PO PRN (01:16)
[2019-10-12] MEDS ORDERED: Loratadine/Pseudoephedrine 10/240 mg Tablet PO PRN (01:20)
[2019-10-12] MEDS ORDERED: Dextrose 50% Abboject 50 ML SYRINGE SLOW IVP PRN (01:22)
[2019-10-12] MEDS ORDERED: Dextrose 5% in Water 1,000 ML IV PRN (01:22)
[2019-10-12] MEDS ORDERED: HumaLOG 300 UNITS/3 ML VIAL SC PRN (01:22)
[2019-10-12] MEDS ORDERED: Furosemide 40 MG/4 ML VIAL SLOW IVP SCH (01:30)
[2019-10-12] MEDS ORDERED: Albuterol 200 PUFF (6.7GM INHALER) INH PRN (01:34)
[2019-10-12 02:08] VITALS: BMI 43.4
[2019-10-12 05:26] LABS: #Eosinphils 0.2 thou/uL (0.0-0.7); #Lymphocytes 1.9 thou/uL (1.20-3.40); #Monocytes 0.9 thou/uL (0.11-0.59); #Neutrophils 5.9 thou/uL (1.40-6.50); %Basophils 0.5 % (0.0-1.0); %Lymphocytes 21.1 % (21.0-51.0); %Neutrophils 66.3 % (42.0-75.0); Hemoglobin 14.4 g/dL (14.0-18.0); Mean Corpuscular HGB CONC 31.9 g/dL (32.0-36.0); Mean Corpuscular Hemoglobin 27.5 pg (27.0-31.0); Mean Corpuscular Volume 86.2 fL (78.0-98.0); Mean Platelet Volume 8.3 fL (7.4-10.4); Platelet Count 221 thou/uL (130-400); RBC Distribution Width 15.8 % (11.5-14.5); Red Blood Cell (RBC) Count 5.22 mill/uL (4.70-6.10); White Blood Cell (WBC) Count 8.9 thou/uL (4.8-10.8)
[2019-10-12 05:43] LABS: Anion Gap 11 mmol/L (10-20); BUN (Urea Nitrogen) 13 mg/dL (8.4-25.7); Calc. Creatinine Clearance 222 mL/min (70-130); Calcium 9.3 mg/dL (7.8-10.44); Carbon Dioxide 34 mmol/L (23-31); Chloride 100 mmol/L (98-107); Estimated GFR-MDRD Greater than 90; Potassium 3.3 mmol/L (3.5-5.1); Sodium 142 mmol/L (136-145)
[2019-10-12 05:46] LABS: Glucose 39 mg/dL (80-115)
[2019-10-12 05:48] LABS: Troponin I Less than 0.010 ng/mL (< 0.028)
[2019-10-12] MEDS ORDERED: Enoxaparin Sodium 40 MG/0.4 ML SYRINGE SC SCH (09:00)
--- NOTE | 2019-10-12 10:38 | HP ---
PRIMARY CARE PHYSICIAN: Dr. Burns. SOURCE OF THE HISTORY: The patient, history is reliable. CHIEF COMPLAINT: "I'm having cough productive of clear sputum since yesterday. " HISTORY OF PRESENT ILLNESS: This is a 63-year-old male patient, who has history of essential hypertension, diabetes mellitus, dyslipidemia, and coronary artery disease, for which the patient had quadruple bypass grafting about 12 years ago , and subsequently, the patient never had any cardiovascular issues so far until the patient had a stent placement to the peripheral arterial disease involving the right lower extremity. The patient also has obstructive sleep apnea, for which the patient has been compliant with nocturnal CPAP support. The patient is compliant with medications, and the patient is able to take care of his activities of daily living without any difficulty. He started having significant sinus drainage associated with cough productive of clear, white mucoid sputum without any chest pain or hemoptysis. Denies any history of fever. No recent history of travel. The patient has a very minimal shortness of breath. Otherwise, the patient has no history of orthopnea, paroxysmal nocturnal dyspnea , or pedal edema. Subsequently, because of persistent symptoms, the patient has seen his primary care physician, where the patient had flu and COVID testing, and the results are pending, and subsequently, the patient was sent to the emergency department at [facility], where the patient had repeat COVID testing, and the result is not available. Subsequently, the patient has been sent to the emergency department. Currently, the patient is comfortable. Denies any complaints of shortness of breath at rest or at minimal exertion. PAST MEDICAL HISTORY: 1. Essential hypertension. 2. Diabetes mellitus. 3. Dyslipidemia. 4. History of coronary artery disease, status post coronary artery bypass grafting in the past. 5. Peripheral arterial disease, status post stent placement to the right lower extremity. 6. Obstructive sleep apnea. PAST SURGICAL HISTORY: Coronary artery bypass grafting. ALLERGIES: THE PATIENT IS ALLERGIC TO PENICILLIN GROUP OF MEDICATIONS. CURRENT MEDICATIONS AT HOME: 1. Metformin 1000 mg orally twice a day. 2. Torsemide 50 mg orally once a day. 3. Gabapentin 300 mg orally 3 times a day. 4. Potassium chloride 20 mEq orally once a day. 5. Zoloft 100 mg orally once a day. 6. Jardiance 25 mg orally once a day. 7. Lisinopril 5 mg orally once a day. 8. Aspirin 81 mg orally once a day. 9. Atorvastatin 40 mg orally once a day. 10. Zetia 10 mg orally once a day. 11. Toujeo SoloStar 90 units subcutaneously once a day. 12. Coreg 6.25 mg orally twice a day. 13. Plavix 75 mg orally once a day. SOCIAL HISTORY: Lives with his and ambulates without any assistance. Otherwise, the patient has chronic tobacco abuse history for 47 years, and the patient has been smoking 2 packs of cigarettes a day, which he stopped 4 months ago. Denies any history of alcohol abuse or recreational drug abuse. FAMILY HISTORY: Significant for heart disease, hypertension, and diabetes mellitus. REVIEW OF SYSTEMS: As mentioned in the history of present illness. Apart from it, 14-point review of systems has been conducted and noncontributory. PHYSICAL EXAMINATION: GENERAL: Elderly male patient, lying on the stretcher comfortably, not appeared to be in any cardiopulmonary distress. Mucous membranes are pink and moist. Acyanotic. Anicteric. No cyanosis, clubbing, pedal edema, or lymphadenopathy. VITAL SIGNS: Temperature 99.1, pulse 91, respirations 18, blood pressure 130/ 72. HEAD: Atraumatic and normocephalic. ENT: Neck is supple. No jugular venous distention. No thyromegaly or carotid bruit. EYES: Extraocular movements are intact. Pupils are equal and reactive to light bilaterally and accommodation reflex bilaterally. CHEST: Bilaterally symmetrical. Trachea is midline. Air entry is good bilaterally with clear breath sounds. CARDIOVASCULAR: Normal intensity of S1 and S2 without S3. No murmurs or rub appreciated. ABDOMEN: Soft without any distension. Nontender. No organomegaly. Bowel sounds are normoactive. RN MILITARY: The patient is alert, awake, and oriented to time, place, and person. Cranial nerves 2 through 12 are intact. No focal motor or sensory deficits. EXTREMITIES: No edema or calf asymmetry. 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 SKIN: No rash or petechiae. LABORATORY DATA: WBC 9.9, hemoglobin 15.9, hematocrit 52, platelets 238. Sodium 141, potassium 4.1, chloride 98, bicarb 31, anion gap 16, BUN 13, creatinine 0.7 , glucose 85. Lactic acid 1.0. Calcium 10. Total bilirubin 0.9, AST 8, ALT 10, alkaline phosphatase 89. Troponin less than 0.010. BNP 135. Total protein 8.0 , albumin 4.2, globulin 3.8. Chest x-ray revealed presumed congestive heart failure. ASSESSMENT AND PLAN: 1. Possible acute bronchitis. a. The patient has been having significant postnasal drainage associated with cough productive of clear, white mucoid sputum since yesterday. Otherwise, clinically , the patient does not appear to be having any [id number] congestive heart failure. b. The patient does not require any antibiotics at this point of time. c. Keep the patient on inhaled bronchodilators as needed. d. Claritin-D 10 mg orally at bedtime. 2. Chronic congestive heart failure. a. Not clear if the patient has any systolic or diastolic heart failure. b. Currently, the patient has beta-natriuretic peptide of 138. Otherwise, the patient has no pulmonary vascular congestion. c. We will give Lasix 40 mg intravenously once a day, and we will consider resuming the patient on torsemide for tomorrow. d. Await home medications. 3. History of essential hypertension. a. Resume home medications once available. b. IV hydralazine 10 mg every 6 hours as needed for systolic pressure more than 160 mmHg. 4. Diabetes mellitus. a. Resume home medications once available. b. Keep the patient on Lispro insulin sliding scale coverage. 5. History of coronary artery disease, status post coronary artery bypass grafting in the past. a. Await home medications to be reconciled. Otherwise, await 2D echocardiogram. Job ID: [id number] MTDD
[2019-10-12] MEDS ORDERED: Potassium Chloride 20 MEQ TAB PO SCH (14:45)
[2019-10-12 15:14] VITALS: BP 129/56; TEMP 98.6
--- NOTE | 2019-10-13 12:03 | DIS ---
DATE OF ADMISSION: 10/11/2019 DATE OF DISCHARGE: 10/12/2019 DISCHARGE DISPOSITION AND FOLLOWUP: Patient discharged to home. The patient was seen and examined on the day of discharge. Denies any new complaints. INPATIENT CONSULTS: No inpatient consults at this time. CLINICAL COURSE: The patient is a 63-year-old male with history of essential hypertension, diabetes mellitus, dyslipidemia, coronary artery disease, and obstructive sleep apnea, for which he uses a nocturnal BiPAP machine. He presented to the hospital in [place] for significant sinus drainage along with a cough. He was transferred here to [facility] in [place] for hypoxia with a concern for a PE and COVID. He was tested for COVID and was admitted in observation status. Chest xray and chest CTA were completed and ruled out pulmonary effusions and pulmonary embolus. COVID test came back negative. ECHO performed at the bedside showing EF 50-55%. Patient maintaining his O2 sats at 94% on room air. FINAL DIAGNOSES: 1. Sinusitis. 2. Acute bronchitis. 3. Essential hypertension. 4. Chronic congestive heart failure. 5. Diabetes mellitus. 6. Dyslipidemia. DISCHARGE MEDICATIONS: New prescription: 1. Cefdinir 300 mg p.o. b.i.d. for 5 days. Resume home medications: 2. Aspirin 81 mg daily. 3. Lipitor 40 mg at night. 4. Carvedilol 6.25 mg p.o. twice daily. 5. Plavix 75 mg p.o. daily. 6. Jardiance 25 mg p.o. daily. 7. Bydureon 2 mg subcu q.7 days. 8. Ezetimibe 10 mg p.o. daily. 9. Gabapentin 300 mg p.o. t.i.d. 10. Toujeo SoloStar 90 units subcu daily. 11. Lisinopril 5 mg p.o. daily. 12. Metformin 1000 mg p.o. twice a day. 13. Potassium 20 mEq p.o. daily. 14. Sertraline 100 mg daily. 15. Torsemide 100 mg daily. DISCHARGE INSTRUCTIONS: The patient was encouraged to take the full prescription of his antibiotics and to follow up with his physician within 10 days. TIME SPENT: Total time coordinating the discharge of this patient was 35 minutes. Job ID: [id number] [facility]
== END 2019-10-12 17:45 | disposition home or self-care (01) ==
LOC: ERS 22:03 → 2SW 23:47
PROVIDERS: ADMIT Hospitalist; ATTEND Hospitalist
DX: J20.9 Acute bronchitis, unspecified (principal); J32.9 Chronic sinusitis, unspecified; I11.0 Hypertensive heart disease with heart failure; I50.9 Heart failure, unspecified; E11.9 Type 2 diabetes mellitus without complications; E78.5 Hyperlipidemia, unspecified; I25.10 Atherosclerotic heart disease of native coronary artery without angina pectoris; I73.9 Peripheral vascular disease, unspecified; G47.33 Obstructive sleep apnea (adult) (pediatric); F17.210 Nicotine dependence, cigarettes, uncomplicated; Z79.82 Long term (current) use of aspirin; Z79.84 Long term (current) use of oral hypoglycemic drugs; Z79.899 Other long term (current) drug therapy; Z88.0 Allergy status to penicillin; Z95.1 Presence of aortocoronary bypass graft; Z20.828 Contact with and (suspected) exposure to other viral communicable diseases
CPT/HCPCS: 80048; 82962; 84484 ×2; 85025; 93306; 96372; 96374; 99285; G0378 ×2; 36415; 36416; J1650; J1940

== ENCOUNTER 2023-11-23 14:05 | Inpatient (IN) | payer MEDICARE ==
[2023-11-23] MEDS ORDERED: Cefepime 2 GM VIAL ONE (15:36)
[2023-11-23] MEDS ORDERED: Sodium Chloride 0.9% 100 ML ONE (15:37)
[2023-11-23 16:08] LABS: #Basophils 0.06 10x3/uL (0.0-0.2); %Basophils 0.7 % (0.0-1.0); %Eosinophils 6.8 % (0.0-10.0); %Lymphocytes 15.5 % (21.0-51.0); %Monocytes 6.9 % (0.0-10.0); %Neutrophils 69.9 % (42.0-75.0); Hematocrit 43.5 % (42.0-52.0); Hemoglobin 13.8 g/dL (14.0-18.0); Mean Corpuscular HGB CONC 31.7 g/dL (32.0-36.0); Mean Corpuscular Hemoglobin 26.3 pg (27.0-31.0); Mean Corpuscular Volume 82.9 fL (78.0-98.0); Mean Platelet Volume 9.8 fL (7.4-10.4); Platelet Count 347 10x3/uL (130-400); RBC Distribution Width 16.3 % (11.5-14.5); Red Blood Cell (RBC) Count 5.25 mill/uL (4.70-6.10)
[2023-11-23 16:20] LABS: ALT (SGPT) 10 U/L (8-55); AST (SGOT) 13 U/L (5-34); Albumin 2.8 g/dL (3.4-4.8); Alkaline Phosphatase 106 U/L (40-110); Anion Gap 16 mmol/L (10-20); BUN (Urea Nitrogen) 27 mg/dL (8.4-25.7); Bilirubin, Total 0.5 mg/dL (0.2-1.2); CRP,High Sensitivity (Inhouse) 5.74 mg/dL (< or = 0.5); Calc. Creatinine Clearance 0 mL/min (70-130); Calcium 9.1 mg/dL (7.8-10.44); Carbon Dioxide 32 mmol/L (23-31); Chloride 97 mmol/L (98-107); Estimated GFR 57; Globulin 4.5 g/dL (2.4-3.5); Glucose 59 mg/dL (80-115); Potassium 4.4 mmol/L (3.5-5.1); Protein, Total 7.3 g/dL (5.8-8.1); Sodium 141 mmol/L (136-145)
[2023-11-23] MEDS ORDERED: Acetaminophen 650 MG Suppository PR PRN (18:26)
[2023-11-23] MEDS ORDERED: Acetaminophen 325 MG TAB PO PRN (18:26)
[2023-11-23] MEDS ORDERED: Ondansetron PF 4 MG/2 ML Vial IVP PRN (18:26)
[2023-11-23] MEDS ORDERED: Ondansetron ODT 4 MG TAB PO PRN (18:26)
[2023-11-23] MEDS ORDERED: Dextrose 5% in Water 1,000 ML IV PRN (18:34)
[2023-11-23] MEDS ORDERED: Insulin Regular, Human 100 UNIT/ML 10 ML VIAL SC PRN ×2 (18:34)
[2023-11-23] MEDS ORDERED: Glucagon 1 MG/ML KIT IM PRN (18:34)
[2023-11-23 18:47] VITALS: BMI 44.6
[2023-11-23] MEDS: Atorvastatin Calcium 40 MG TAB PO SCH (20:22)
[2023-11-23] MEDS ORDERED: Aspirin 81 mg Enteric Coated Tablet PO SCH (21:00)
[2023-11-23] MEDS: metroNIDAZOLE 500 MG in Premix 1 BAG IVPB SCH (23:38)
[2023-11-24] MEDS: Vancomycin 1 GM in Premix 1 BAG IVPB SCH ×2 (01:11→20:53)
[2023-11-24] MEDS: Cefepime 2 GM in Sodium Chloride 0.9% 100 ML IVPB SCH (04:15)
[2023-11-24 05:31] LABS: #Basophils 0.05 10x3/uL (0.0-0.2); %Basophils 0.6 % (0.0-1.0); %Eosinophils 7.5 % (0.0-10.0); %Lymphocytes 19.4 % (21.0-51.0); %Monocytes 9.1 % (0.0-10.0); %Neutrophils 63.1 % (42.0-75.0); Hematocrit 38.5 % (42.0-52.0); Hemoglobin 12.2 g/dL (14.0-18.0); Mean Corpuscular HGB CONC 31.7 g/dL (32.0-36.0); Mean Corpuscular Hemoglobin 25.9 pg (27.0-31.0); Mean Corpuscular Volume 81.7 fL (78.0-98.0); Mean Platelet Volume 9.7 fL (7.4-10.4); Platelet Count 324 10x3/uL (130-400); RBC Distribution Width 16.5 % (11.5-14.5); Red Blood Cell (RBC) Count 4.71 mill/uL (4.70-6.10)
[2023-11-24] MEDS: Dextrose 50% Abboject 50 ML SYRINGE SLOW IVP PRN (05:41)
[2023-11-24 05:58] LABS: Vancomycin, Random 27.9 ug/mL (See Comment)
[2023-11-24 06:22] LABS: Anion Gap 13 mmol/L (10-20); BUN (Urea Nitrogen) 26 mg/dL (8.4-25.7); Calc. Creatinine Clearance 134 mL/min (70-130); Calcium 8.8 mg/dL (7.8-10.44); Carbon Dioxide 33 mmol/L (23-31); Chloride 101 mmol/L (98-107); Estimated GFR 66; Glucose 39 mg/dL (80-115); Potassium 3.7 mmol/L (3.5-5.1); Sodium 143 mmol/L (136-145)
[2023-11-24] MEDS: Sertraline 100 MG TAB PO SCH (09:44)
[2023-11-24] MEDS: Ezetimibe 10 MG TAB PO SCH (09:44)
[2023-11-24] MEDS: Carvedilol 6.25 MG TAB PO SCH (09:45)
[2023-11-24] MEDS: Gabapentin 300 MG CAP PO SCH ×3 (09:45→20:54)
[2023-11-24] MEDS: Lisinopril 5 MG TAB PO SCH (09:45)
[2023-11-24] MEDS ORDERED: Lidocaine 2% PF 5 ML VIAL ONE (10:19)
[2023-11-24] MEDS ORDERED: PROPOFOL 20 ML ONE (10:20)
[2023-11-24] MEDS ORDERED: Dextrose 50% Abboject 50 ML SYRINGE ONE (10:35)
[2023-11-24] MEDS ORDERED: fentaNYL PF 100 MCG/2 ML SYRINGE ONE (10:39)
[2023-11-24] MEDS ORDERED: Bupivacaine PF 0.5% 30 ML VIAL ONE (11:19)
[2023-11-24] MEDS: Ketorolac Tromethamine 30 MG (1 mL) VIAL IVP SCH (17:30)
[2023-11-24] MEDS: Vancomycin (BATCH) 2.5 GM in Premix 1 BAG IVPB SCH (20:13)
[2023-11-25 04:15] LABS: #Basophils 0.07 10x3/uL (0.0-0.2); %Basophils 0.9 % (0.0-1.0); %Eosinophils 8.2 % (0.0-10.0); %Lymphocytes 22.4 % (21.0-51.0); %Monocytes 9.1 % (0.0-10.0); Hematocrit 35.3 % (42.0-52.0); Mean Corpuscular HGB CONC 31.2 g/dL (32.0-36.0); Mean Corpuscular Hemoglobin 25.9 pg (27.0-31.0); Mean Corpuscular Volume 83.3 fL (78.0-98.0); Mean Platelet Volume 9.6 fL (7.4-10.4); Platelet Count 287 10x3/uL (130-400); RBC Distribution Width 16.7 % (11.5-14.5); Red Blood Cell (RBC) Count 4.24 mill/uL (4.70-6.10)
[2023-11-25 04:35] LABS: Hemoglobin A1c 6.3 % (4.0-6.0)
[2023-11-25 04:38] LABS: Anion Gap 13 mmol/L (10-20); BUN (Urea Nitrogen) 22 mg/dL (8.4-25.7); Calc. Creatinine Clearance 139 mL/min (70-130); Calcium 8.1 mg/dL (7.8-10.44); Carbon Dioxide 32 mmol/L (23-31); Chloride 100 mmol/L (98-107); Estimated GFR 69; Glucose 67 mg/dL (80-115); Potassium 3.9 mmol/L (3.5-5.1); Sodium 141 mmol/L (136-145)
[2023-11-25] MEDS: HYDROcodone/Acetaminophen 5/325 mg Tablet PO PRN (09:44)
[2023-11-25] MEDS: Morphine 2 MG/ML VIAL SLOW IVP SCH (11:07)
[2023-11-26 05:52] LABS: #Basophils 0.05 10x3/uL (0.0-0.2); %Basophils 0.6 % (0.0-1.0); %Eosinophils 8.4 % (0.0-10.0); %Lymphocytes 25.3 % (21.0-51.0); %Neutrophils 58.4 % (42.0-75.0); Hematocrit 36.8 % (42.0-52.0); Hemoglobin 11.3 g/dL (14.0-18.0); Mean Corpuscular HGB CONC 30.7 g/dL (32.0-36.0); Mean Corpuscular Hemoglobin 26.3 pg (27.0-31.0); Mean Corpuscular Volume 85.8 fL (78.0-98.0); Mean Platelet Volume 9.6 fL (7.4-10.4); Platelet Count 291 10x3/uL (130-400); RBC Distribution Width 16.6 % (11.5-14.5); Red Blood Cell (RBC) Count 4.29 mill/uL (4.70-6.10)
[2023-11-26 06:29] LABS: Anion Gap 12 mmol/L (10-20); BUN (Urea Nitrogen) 25 mg/dL (8.4-25.7); Calc. Creatinine Clearance 154 mL/min (70-130); Carbon Dioxide 31 mmol/L (23-31); Chloride 99 mmol/L (98-107); Estimated GFR 78; Glucose 88 mg/dL (80-115); Potassium 4.3 mmol/L (3.5-5.1); Sodium 138 mmol/L (136-145)
[2023-11-26 06:30] LABS: Vancomycin, Random 22.6 ug/mL (See Comment)
[2023-11-26] MEDS: Senokot S 8.6-50 MG TAB PO SCH ×2 (10:12→20:16)
[2023-11-26] MEDS: Polyethylene Glycol 3350 17 GM Packet PO SCH (10:12)
[2023-11-26] MEDS: Furosemide 40 MG (4 mL) VIAL SLOW IVP SCH (14:25)
[2023-11-27 07:32] LABS: #Basophils 0.04 10x3/uL (0.0-0.2); %Basophils 0.6 % (0.0-1.0); %Lymphocytes 20.6 % (21.0-51.0); %Monocytes 6.7 % (0.0-10.0); %Neutrophils 63.8 % (42.0-75.0); Hematocrit 40.9 % (42.0-52.0); Hemoglobin 12.6 g/dL (14.0-18.0); Mean Corpuscular HGB CONC 30.8 g/dL (32.0-36.0); Mean Corpuscular Hemoglobin 25.8 pg (27.0-31.0); Mean Corpuscular Volume 83.8 fL (78.0-98.0); Mean Platelet Volume 9.4 fL (7.4-10.4); Platelet Count 273 10x3/uL (130-400); RBC Distribution Width 16.3 % (11.5-14.5); Red Blood Cell (RBC) Count 4.88 mill/uL (4.70-6.10)
[2023-11-27] MEDS: Polyethylene Glycol 3350 17 GM Packet PO SCH (07:33)
[2023-11-27 07:54] LABS: Anion Gap 14 mmol/L (10-20); BUN (Urea Nitrogen) 21 mg/dL (8.4-25.7); Calc. Creatinine Clearance 202 mL/min (70-130); Calcium 8.6 mg/dL (7.8-10.44); Carbon Dioxide 32 mmol/L (23-31); Chloride 103 mmol/L (98-107); Estimated GFR 96; Glucose 122 mg/dL (80-115); Potassium 4.3 mmol/L (3.5-5.1); Sodium 145 mmol/L (136-145)
[2023-11-27] MEDS: HumaLOG 300 UNITS/3 ML VIAL SC PRN (12:35)
[2023-11-28 06:03] LABS: #Basophils 0.05 10x3/uL (0.0-0.2); %Basophils 0.7 % (0.0-1.0); %Eosinophils 7.7 % (0.0-10.0); %Lymphocytes 19.6 % (21.0-51.0); %Monocytes 6.9 % (0.0-10.0); %Neutrophils 64.8 % (42.0-75.0); Hematocrit 37.8 % (42.0-52.0); Hemoglobin 11.8 g/dL (14.0-18.0); Mean Corpuscular HGB CONC 31.2 g/dL (32.0-36.0); Mean Corpuscular Hemoglobin 26.3 pg (27.0-31.0); Mean Corpuscular Volume 84.2 fL (78.0-98.0); Mean Platelet Volume 9.2 fL (7.4-10.4); Platelet Count 260 10x3/uL (130-400); RBC Distribution Width 16.1 % (11.5-14.5); Red Blood Cell (RBC) Count 4.49 mill/uL (4.70-6.10)
[2023-11-28 06:16] LABS: Anion Gap 11 mmol/L (10-20); BUN (Urea Nitrogen) 19 mg/dL (8.4-25.7); Calc. Creatinine Clearance 213 mL/min (70-130); Calcium 8.7 mg/dL (7.8-10.44); Carbon Dioxide 29 mmol/L (23-31); Chloride 105 mmol/L (98-107); Estimated GFR 98; Glucose 131 mg/dL (80-115); Potassium 4.2 mmol/L (3.5-5.1); Sodium 141 mmol/L (136-145)
[2023-11-29 05:54] LABS: #Basophils 0.07 10x3/uL (0.0-0.2); %Basophils 0.9 % (0.0-1.0); %Monocytes 6.4 % (0.0-10.0); %Neutrophils 60.4 % (42.0-75.0); Hematocrit 38.8 % (42.0-52.0); Mean Corpuscular HGB CONC 30.9 g/dL (32.0-36.0); Mean Corpuscular Hemoglobin 25.4 pg (27.0-31.0); Mean Corpuscular Volume 82.2 fL (78.0-98.0); Mean Platelet Volume 9.3 fL (7.4-10.4); Platelet Count 258 10x3/uL (130-400); RBC Distribution Width 16.2 % (11.5-14.5); Red Blood Cell (RBC) Count 4.72 mill/uL (4.70-6.10)
[2023-11-29 06:08] LABS: Anion Gap 15 mmol/L (10-20); BUN (Urea Nitrogen) 21 mg/dL (8.4-25.7); Calc. Creatinine Clearance 194 mL/min (70-130); Calcium 8.9 mg/dL (7.8-10.44); Carbon Dioxide 29 mmol/L (23-31); Chloride 102 mmol/L (98-107); Estimated GFR 95; Glucose 152 mg/dL (80-115); Potassium 4.1 mmol/L (3.5-5.1); Sodium 142 mmol/L (136-145)
[2023-11-29] MEDS: Clopidogrel Bisulfate 75 MG TAB PO SCH (20:48)
[2023-11-30 05:43] LABS: Anion Gap 13 mmol/L (10-20); BUN (Urea Nitrogen) 20 mg/dL (8.4-25.7); Calc. Creatinine Clearance 207 mL/min (70-130); Calcium 8.7 mg/dL (7.8-10.44); Carbon Dioxide 29 mmol/L (23-31); Chloride 101 mmol/L (98-107); Estimated GFR 97; Glucose 167 mg/dL (80-115); Magnesium 1.8 mg/dL (1.6-2.6); Sodium 139 mmol/L (136-145)
[2023-11-30] MEDS ORDERED: Magnevist 469MG/ML 20 ML VIAL ONE (12:56)
[2023-11-30 13:58] VITALS: BMI 44.5
[2023-11-30 18:11] VITALS: BP 132/65; TEMP 97.8
== END 2023-11-30 18:15 | disposition home or self-care (01) | DRG 616 ==
LOC: ERS 14:05 → MSONC 17:19
PROVIDERS: ADMIT Family Medicine; ATTEND Internal Medicine
PROC: 0Y6W0Z1 Detachment at Left 4th Toe, High, Open Approach (ICD-10-PCS; principal; 2023-11-24)
PROC: 5A09357 Assistance with Respiratory Ventilation, Less than 24 Consecutive Hours, Continuous Positive Airway Pressure (ICD-10-PCS; 2023-11-24)
DX: E11.69 Type 2 diabetes mellitus with other specified complication (principal); J96.01 Acute respiratory failure with hypoxia; M86.172 Other acute osteomyelitis, left ankle and foot; Z68.41 Body mass index [BMI] 40.0-44.9, adult; I13.0 Hypertensive heart and chronic kidney disease with heart failure and stage 1 through stage 4 chronic kidney disease, or unspecified chronic kidney disease; Z88.0 Allergy status to penicillin; I50.9 Heart failure, unspecified; K21.9 Gastro-esophageal reflux disease without esophagitis; G47.33 Obstructive sleep apnea (adult) (pediatric); Z87.891 Personal history of nicotine dependence; E11.51 Type 2 diabetes mellitus with diabetic peripheral angiopathy without gangrene; E11.40 Type 2 diabetes mellitus with diabetic neuropathy, unspecified; Z79.82 Long term (current) use of aspirin; Z79.84 Long term (current) use of oral hypoglycemic drugs; Z79.899 Other long term (current) drug therapy; Z95.1 Presence of aortocoronary bypass graft; E11.649 Type 2 diabetes mellitus with hypoglycemia without coma; E66.01 Morbid (severe) obesity due to excess calories; N18.4 Chronic kidney disease, stage 4 (severe); E11.22 Type 2 diabetes mellitus with diabetic chronic kidney disease; M25.461 Effusion, right knee
CPT/HCPCS: 36415; 36416; 71045; 80048; 80053; 80202; 83036; 83735; 83880; 85025; 86140; 86141; 87040; 87070; 87076; 87077; 87186; 87205; 93306; 96365; 96375; 97139; A9579; J0665; J0692; J1815; J1885; J1940; J2001; J2704; J3370; J3370-JW; J3490; J7999

== ENCOUNTER 2024-04-30 16:33 | Inpatient (IN) | payer MEDICARE ==
[2024-04-30] MEDS ORDERED: Furosemide 40 MG (4 mL) VIAL ONE (17:11)
[2024-04-30 17:18] LABS: #Basophils 0.05 10x3/uL (0.0-0.2); %Basophils 0.7 % (0.0-1.0); %Eosinophils 5.6 % (0.0-10.0); %Monocytes 7.7 % (0.0-10.0); %Neutrophils 64.7 % (42.0-75.0); Hematocrit 40.7 % (42.0-52.0); Hemoglobin 12.1 g/dL (14.0-18.0); Mean Corpuscular HGB CONC 29.7 g/dL (32.0-36.0); Mean Corpuscular Hemoglobin 26.9 pg (27.0-31.0); Mean Corpuscular Volume 90.6 fL (78.0-98.0); Mean Platelet Volume 9.4 fL (7.4-10.4); Platelet Count 269 10x3/uL (130-400); RBC Distribution Width 15.9 % (11.5-14.5); Red Blood Cell (RBC) Count 4.49 mill/uL (4.70-6.10)
[2024-04-30 17:36] LABS: ALT (SGPT) 7 U/L (8-55); AST (SGOT) 10 U/L (5-34); Alkaline Phosphatase 115 U/L (40-110); Anion Gap 10 mmol/L (10-20); BUN (Urea Nitrogen) 12 mg/dL (8.4-25.7); Bilirubin, Total 0.5 mg/dL (0.2-1.2); Calc. Creatinine Clearance 0 mL/min (70-130); Calcium 8.8 mg/dL (7.8-10.44); Carbon Dioxide 31 mmol/L (23-31); Chloride 107 mmol/L (98-107); Estimated GFR 85; Globulin 3.6 g/dL (2.4-3.5); Glucose 74 mg/dL (80-115); Potassium 5.2 mmol/L (3.5-5.1); Protein, Total 6.6 g/dL (5.8-8.1); Sodium 143 mmol/L (136-145)
[2024-04-30 17:42] LABS: Troponin I 0.018 ng/mL (< 0.028)
[2024-04-30 21:21] LABS: Troponin I 0.014 ng/mL (< 0.028)
[2024-05-01] MEDS ORDERED: Dextrose 50% Abboject 50 ML SYRINGE SLOW IVP PRN ×2 (00:35→01:00)
[2024-05-01] MEDS ORDERED: Dextrose 5% in Water 1,000 ML IV PRN ×2 (00:35→01:00)
[2024-05-01] MEDS ORDERED: Glucagon 1 MG/ML KIT IM PRN ×2 (00:35→01:00)
[2024-05-01] MEDS ORDERED: Insulin Lispro 100 UNIT/ML 10 ML VIAL SC PRN ×2 (01:00→06:38)
[2024-05-01] MEDS ORDERED: Ondansetron PF 4 MG/2 ML Vial IVP PRN (01:00)
[2024-05-01] MEDS ORDERED: Bisacodyl 5 MG TAB PO PRN (01:00)
[2024-05-01] MEDS ORDERED: Acetaminophen 325 MG TAB PO PRN (01:00)
[2024-05-01] MEDS ORDERED: traMADol HCl 50 MG TAB PO PRN (01:00)
[2024-05-01] MEDS: Albuterol 2.5 MG (3 mL) NEB NEB SCH (01:11)
[2024-05-01 01:24] LABS: Troponin I Less than 0.010 ng/mL (< 0.028)
[2024-05-01 03:00] VITALS: BMI 47.8
[2024-05-01] MEDS: Dextrose 50% Abboject 50 ML SYRINGE SLOW IVP SCH (03:02)
[2024-05-01] MEDS: Insulin Regular, Human 100 UNIT/ML 10 ML VIAL IVP SCH (03:02)
[2024-05-01] MEDS: Sodium Polystyrene Sulfonate 15 GM (60 mL) BOT PO SCH (03:03)
[2024-05-01 04:02] LABS: #Basophils 0.03 10x3/uL (0.0-0.2); %Basophils 0.4 % (0.0-1.0); %Eosinophils 4.7 % (0.0-10.0); %Lymphocytes 26.4 % (21.0-51.0); %Monocytes 8.5 % (0.0-10.0); %Neutrophils 59.7 % (42.0-75.0); Hematocrit 39.7 % (42.0-52.0); Mean Corpuscular HGB CONC 30.2 g/dL (32.0-36.0); Mean Corpuscular Hemoglobin 26.7 pg (27.0-31.0); Mean Corpuscular Volume 88.4 fL (78.0-98.0); Mean Platelet Volume 9.8 fL (7.4-10.4); Platelet Count 263 10x3/uL (130-400); RBC Distribution Width 15.9 % (11.5-14.5); Red Blood Cell (RBC) Count 4.49 mill/uL (4.70-6.10)
[2024-05-01 04:14] LABS: Anion Gap 12 mmol/L (10-20); BUN (Urea Nitrogen) 12 mg/dL (8.4-25.7); Calc. Creatinine Clearance 228 mL/min (70-130); Calcium 8.6 mg/dL (7.8-10.44); Carbon Dioxide 31 mmol/L (23-31); Chloride 106 mmol/L (98-107); Estimated GFR 97; Glucose 87 mg/dL (80-115); Sodium 145 mmol/L (136-145)
[2024-05-01] MEDS: Furosemide 40 MG (4 mL) VIAL SLOW IVP SCH (05:47)
[2024-05-01 07:01] LABS: Magnesium 1.8 mg/dL (1.6-2.6)
[2024-05-01] MEDS: Carvedilol 6.25 MG TAB PO SCH (09:35)
[2024-05-01] MEDS: Lisinopril 5 MG TAB PO SCH (09:35)
[2024-05-01] MEDS: metFORMIN 500 MG TAB PO SCH (09:35)
[2024-05-01] MEDS: Sertraline 100 MG TAB PO SCH (09:35)
[2024-05-01] MEDS: Gabapentin 300 MG CAP PO SCH (09:35)
[2024-05-01] MEDS: Enoxaparin 40 MG (0.4 mL) SYRINGE SC SCH ×2 (09:35→20:21)
[2024-05-01] MEDS: Aspirin 81 mg Enteric Coated Tablet PO SCH (09:35)
[2024-05-01] MEDS: Empagliflozin 25 MG TAB PO SCH (09:36)
[2024-05-01] MEDS: Ezetimibe 10 MG TAB PO SCH (09:36)
[2024-05-01] MEDS: Magnesium 2 GM/50 ML(in water) 2 GM in Premix 1 BAG IVPB SCH (10:23)
[2024-05-01] MEDS: Nystatin Powder 15 GM BOT TOP SCH ×2 (11:23→20:20)
[2024-05-01] MEDS ORDERED: Senokot 8.6 MG TAB PO PRN (13:11)
[2024-05-01] MEDS: Atorvastatin Calcium 40 MG TAB PO SCH (20:19)
[2024-05-01] MEDS: Clopidogrel Bisulfate 75 MG TAB PO SCH (20:19)
[2024-05-02] MEDS ORDERED: Furosemide 40 MG (4 mL) VIAL ONE ×2 (05:11→13:11)
[2024-05-02] MEDS ORDERED: Gabapentin 300 MG CAP ONE ×2 (09:11→13:11)
[2024-05-02] MEDS ORDERED: Sertraline 100 MG TAB ONE (09:11)
[2024-05-02] MEDS ORDERED: Spironolactone 25 MG TAB ONE (09:11)
[2024-05-02] MEDS ORDERED: Carvedilol 6.25 MG TAB ONE (09:11)
[2024-05-02] MEDS ORDERED: Aspirin 81 mg Enteric Coated Tablet ONE (09:11)
[2024-05-02] MEDS ORDERED: Ezetimibe 10 MG TAB ONE (09:11)
[2024-05-02] MEDS ORDERED: Enoxaparin 40 MG (0.4 mL) SYRINGE ONE (09:11)
[2024-05-02] MEDS ORDERED: Lisinopril 5 MG TAB ONE (09:11)
[2024-05-02] MEDS ORDERED: Potassium Chloride 20 MEQ TAB ONE ×2 (09:11→13:11)
[2024-05-03] MEDS: Aquaphor 2.8 oz 80 GM JAR TOP SCH (17:42)
[2024-05-03] MEDS: Spironolactone 25 MG TAB PO SCH (17:42)
[2024-05-03] MEDS ORDERED: Electrolyte Replacement Protocol 1 EACH FS PRN (21:59)
[2024-05-03] MEDS: Empagliflozin 25 MG TAB ONE (23:27)
[2024-05-03] MEDS: Potassium Chloride 20 MEQ TAB ONE ×2 (23:27→23:28)
[2024-05-03] MEDS: metFORMIN 500 MG TAB ONE (23:27)
[2024-05-04] MEDS: Potassium Chloride 20 MEQ TAB PO SCH (00:33)
[2024-05-04] MEDS: Potassium Chloride 20 MEQ TAB ONE ×3 (04:24→14:24)
[2024-05-04 04:28] LABS: #Basophils 0.03 10x3/uL (0.0-0.2); %Basophils 0.4 % (0.0-1.0); %Eosinophils 3.5 % (0.0-10.0); %Lymphocytes 21.6 % (21.0-51.0); %Monocytes 8.9 % (0.0-10.0); %Neutrophils 65.3 % (42.0-75.0); Hematocrit 40.3 % (42.0-52.0); Mean Corpuscular HGB CONC 29.8 g/dL (32.0-36.0); Mean Corpuscular Hemoglobin 26.1 pg (27.0-31.0); Mean Corpuscular Volume 87.8 fL (78.0-98.0); Mean Platelet Volume 10.1 fL (7.4-10.4); Platelet Count 300 10x3/uL (130-400); RBC Distribution Width 15.5 % (11.5-14.5); Red Blood Cell (RBC) Count 4.59 mill/uL (4.70-6.10)
[2024-05-04 05:00] LABS: Anion Gap 12 mmol/L (10-20); BUN (Urea Nitrogen) 14 mg/dL (8.4-25.7); Calc. Creatinine Clearance 196 mL/min (70-130); Carbon Dioxide 32 mmol/L (23-31); Chloride 104 mmol/L (98-107); Estimated GFR 93; Glucose 118 mg/dL (80-115); Potassium 4.3 mmol/L (3.5-5.1); Sodium 144 mmol/L (136-145)
[2024-05-04 09:08] LABS: Anion Gap 12 mmol/L (10-20); BUN (Urea Nitrogen) 15 mg/dL (8.4-25.7); Calc. Creatinine Clearance 168 mL/min (70-130); Carbon Dioxide 25 mmol/L (23-31); Chloride 103 mmol/L (98-107); Estimated GFR 82; Glucose 93 mg/dL (80-115); Magnesium 1.7 mg/dL (1.6-2.6); Sodium 137 mmol/L (136-145)
[2024-05-04] MEDS: Enoxaparin 40 MG (0.4 mL) SYRINGE SC SCH (12:36)
[2024-05-04] MEDS: Magnesium 2 GM/50 ML(in water) 2 GM in Premix 1 BAG IVPB SCH (12:37)
[2024-05-04] MEDS: metFORMIN 500 MG TAB ONE (12:38)
[2024-05-04] MEDS: Empagliflozin 25 MG TAB ONE (12:38)
[2024-05-04] MEDS: metFORMIN 500 MG TAB PO SCH (18:43)
[2024-05-04 22:38] LABS: #Basophils 0.04 10x3/uL (0.0-0.2); %Basophils 0.6 % (0.0-1.0); %Eosinophils 4.2 % (0.0-10.0); %Lymphocytes 31.5 % (21.0-51.0); %Monocytes 8.5 % (0.0-10.0); %Neutrophils 54.8 % (42.0-75.0); Hematocrit 38.3 % (42.0-52.0); Hemoglobin 11.7 g/dL (14.0-18.0); Mean Corpuscular HGB CONC 30.5 g/dL (32.0-36.0); Mean Corpuscular Hemoglobin 26.8 pg (27.0-31.0); Mean Corpuscular Volume 87.6 fL (78.0-98.0); Mean Platelet Volume 9.9 fL (7.4-10.4); Platelet Count 272 10x3/uL (130-400); RBC Distribution Width 15.7 % (11.5-14.5); Red Blood Cell (RBC) Count 4.37 mill/uL (4.70-6.10)
[2024-05-05 06:47] LABS: Magnesium 2.2 mg/dL (1.6-2.6)
[2024-05-05] MEDS: metFORMIN 500 MG TAB PO SCH (09:08)
[2024-05-05] MEDS: Potassium Chloride 20 MEQ TAB ONE ×3 (09:09→12:40)
[2024-05-05] MEDS: Empagliflozin 25 MG TAB ONE (09:49)
[2024-05-05 14:17] LABS: Anion Gap 14 mmol/L (10-20); BUN (Urea Nitrogen) 22 mg/dL (8.4-25.7); Calc. Creatinine Clearance 177 mL/min (70-130); Calcium 9.2 mg/dL (7.8-10.44); Carbon Dioxide 33 mmol/L (23-31); Chloride 102 mmol/L (98-107); Estimated GFR 93; Glucose 158 mg/dL (80-115); Magnesium 2.2 mg/dL (1.6-2.6); Sodium 145 mmol/L (136-145)
[2024-05-06 06:15] LABS: #Basophils 0.03 10x3/uL (0.0-0.2); %Basophils 0.4 % (0.0-1.0); %Eosinophils 3.3 % (0.0-10.0); %Lymphocytes 25.7 % (21.0-51.0); %Monocytes 8.4 % (0.0-10.0); %Neutrophils 61.9 % (42.0-75.0); Hematocrit 40.3 % (42.0-52.0); Hemoglobin 12.3 g/dL (14.0-18.0); Mean Corpuscular HGB CONC 30.5 g/dL (32.0-36.0); Mean Corpuscular Hemoglobin 26.3 pg (27.0-31.0); Mean Corpuscular Volume 86.3 fL (78.0-98.0); Mean Platelet Volume 10.3 fL (7.4-10.4); Platelet Count 308 10x3/uL (130-400); RBC Distribution Width 15.8 % (11.5-14.5); Red Blood Cell (RBC) Count 4.67 mill/uL (4.70-6.10)
[2024-05-06 06:50] LABS: Anion Gap 13 mmol/L (10-20); BUN (Urea Nitrogen) 27 mg/dL (8.4-25.7); Calc. Creatinine Clearance 177 mL/min (70-130); Calcium 8.8 mg/dL (7.8-10.44); Carbon Dioxide 32 mmol/L (23-31); Chloride 103 mmol/L (98-107); Estimated GFR 93; Glucose 110 mg/dL (80-115); Magnesium 2.3 mg/dL (1.6-2.6); Potassium 3.9 mmol/L (3.5-5.1); Sodium 144 mmol/L (136-145)
[2024-05-06] MEDS ORDERED: Bumetanide 1 MG TAB PO SCH (09:00)
[2024-05-06] MEDS: Potassium Chloride 20 MEQ TAB ONE ×3 (10:11→16:36)
[2024-05-06] MEDS: Torsemide 100 MG TAB PO SCH (13:44)
[2024-05-06] MEDS: Mometasone 200 MCG/Formoterol 5 MCG 120 PUFF INHALER INH SCH (20:29)
[2024-05-07 05:14] LABS: #Basophils 0.04 10x3/uL (0.0-0.2); %Basophils 0.5 % (0.0-1.0); %Eosinophils 3.6 % (0.0-10.0); %Lymphocytes 28.6 % (21.0-51.0); %Monocytes 8.3 % (0.0-10.0); %Neutrophils 58.7 % (42.0-75.0); Hematocrit 42.3 % (42.0-52.0); Hemoglobin 12.8 g/dL (14.0-18.0); Mean Corpuscular HGB CONC 30.3 g/dL (32.0-36.0); Mean Corpuscular Hemoglobin 26.3 pg (27.0-31.0); Mean Corpuscular Volume 86.9 fL (78.0-98.0); Mean Platelet Volume 10.5 fL (7.4-10.4); Platelet Count 303 10x3/uL (130-400); RBC Distribution Width 15.6 % (11.5-14.5); Red Blood Cell (RBC) Count 4.87 mill/uL (4.70-6.10)
[2024-05-07 07:02] LABS: Anion Gap 13 mmol/L (10-20); BUN (Urea Nitrogen) 37 mg/dL (8.4-25.7); Calc. Creatinine Clearance 137 mL/min (70-130); Calcium 8.9 mg/dL (7.8-10.44); Carbon Dioxide 35 mmol/L (23-31); Chloride 101 mmol/L (98-107); Estimated GFR 80; Glucose 118 mg/dL (80-115); Magnesium 2.1 mg/dL (1.6-2.6); Potassium 3.8 mmol/L (3.5-5.1); Sodium 145 mmol/L (136-145)
[2024-05-07] MEDS: Potassium Chloride 20 MEQ TAB ONE ×2 (09:18→12:20)
[2024-05-07] MEDS: Torsemide 100 MG TAB PO SCH (09:30)
[2024-05-07 14:53] VITALS: BMI 39.3
[2024-05-08 05:23] LABS: #Basophils 0.06 10x3/uL (0.0-0.2); %Basophils 0.7 % (0.0-1.0); %Eosinophils 4.3 % (0.0-10.0); %Lymphocytes 31.1 % (21.0-51.0); %Neutrophils 56.7 % (42.0-75.0); Hematocrit 41.5 % (42.0-52.0); Hemoglobin 12.4 g/dL (14.0-18.0); Mean Corpuscular HGB CONC 29.9 g/dL (32.0-36.0); Mean Corpuscular Hemoglobin 26.3 pg (27.0-31.0); Mean Corpuscular Volume 87.9 fL (78.0-98.0); Mean Platelet Volume 10.7 fL (7.4-10.4); Platelet Count 347 10x3/uL (130-400); RBC Distribution Width 15.5 % (11.5-14.5); Red Blood Cell (RBC) Count 4.72 mill/uL (4.70-6.10)
[2024-05-08 06:07] LABS: Anion Gap 15 mmol/L (10-20); BUN (Urea Nitrogen) 43 mg/dL (8.4-25.7); Calc. Creatinine Clearance 118 mL/min (70-130); Calcium 9.1 mg/dL (7.8-10.44); Carbon Dioxide 33 mmol/L (23-31); Chloride 101 mmol/L (98-107); Estimated GFR 66; Glucose 105 mg/dL (80-115); Potassium 3.9 mmol/L (3.5-5.1); Sodium 145 mmol/L (136-145)
[2024-05-08] MEDS: Magnesium 2 GM/50 ML(in water) 2 GM in Premix 1 BAG IVPB SCH (09:22)
[2024-05-08] MEDS: Insulin Lispro 100 UNIT/ML 10 ML VIAL SC PRN (11:46)
[2024-05-09 07:43] LABS: #Basophils 0.07 10x3/uL (0.0-0.2); %Basophils 0.9 % (0.0-1.0); %Eosinophils 3.2 % (0.0-10.0); %Monocytes 7.9 % (0.0-10.0); %Neutrophils 58.7 % (42.0-75.0); Hematocrit 40.2 % (42.0-52.0); Hemoglobin 12.3 g/dL (14.0-18.0); Mean Corpuscular HGB CONC 30.6 g/dL (32.0-36.0); Mean Corpuscular Hemoglobin 26.3 pg (27.0-31.0); Mean Corpuscular Volume 86.1 fL (78.0-98.0); Mean Platelet Volume 10.7 fL (7.4-10.4); Platelet Count 304 10x3/uL (130-400); RBC Distribution Width 15.5 % (11.5-14.5); Red Blood Cell (RBC) Count 4.67 mill/uL (4.70-6.10)
[2024-05-09 08:00] LABS: Anion Gap 17 mmol/L (10-20); BUN (Urea Nitrogen) 50 mg/dL (8.4-25.7); Calc. Creatinine Clearance 123 mL/min (70-130); Calcium 9.1 mg/dL (7.8-10.44); Carbon Dioxide 33 mmol/L (23-31); Chloride 103 mmol/L (98-107); Estimated GFR 63; Glucose 129 mg/dL (80-115); Magnesium 2.3 mg/dL (1.6-2.6); Potassium 3.9 mmol/L (3.5-5.1); Sodium 149 mmol/L (136-145)
[2024-05-09 12:00] VITALS: BP 111/67; TEMP 98.1
[2024-05-09] MEDS: Empagliflozin 25 MG TAB PO SCH (12:46)
[2024-05-10] MEDS ORDERED: Empagliflozin 25 MG TAB PO SCH (09:00)
== END 2024-05-09 17:01 | disposition swing bed (61) | DRG 291 ==
LOC: ERS 16:33 → 2NO 21:29 → OBSVTOIN 21:29 → T4-A 05-08 18:52
PROVIDERS: ADMIT Internal Medicine; ATTEND Internal Medicine
PROC: 5A09357 Assistance with Respiratory Ventilation, Less than 24 Consecutive Hours, Continuous Positive Airway Pressure (ICD-10-PCS; principal; 2024-05-01)
DX: I13.0 Hypertensive heart and chronic kidney disease with heart failure and stage 1 through stage 4 chronic kidney disease, or unspecified chronic kidney disease (principal); I50.43 Acute on chronic combined systolic (congestive) and diastolic (congestive) heart failure; J96.21 Acute and chronic respiratory failure with hypoxia; Z68.41 Body mass index [BMI] 40.0-44.9, adult; E87.5 Hyperkalemia; I25.10 Atherosclerotic heart disease of native coronary artery without angina pectoris; I73.9 Peripheral vascular disease, unspecified; E78.5 Hyperlipidemia, unspecified; Z88.0 Allergy status to penicillin; G47.33 Obstructive sleep apnea (adult) (pediatric); Z95.1 Presence of aortocoronary bypass graft; Z87.891 Personal history of nicotine dependence; Z79.82 Long term (current) use of aspirin; Z79.899 Other long term (current) drug therapy; E11.22 Type 2 diabetes mellitus with diabetic chronic kidney disease; N18.2 Chronic kidney disease, stage 2 (mild); E87.6 Hypokalemia; E66.01 Morbid (severe) obesity due to excess calories
CPT/HCPCS: 36415; 36416; 71045; 80048; 80053; 83036; 83735; 83880; 84484; 85025; 93005; 93306; 94640; 94664; 96374; 97139; J1650; J1940; J3475; J7611; J7999

== ENCOUNTER 2024-12-20 13:21 | Inpatient (IN) | payer MEDICARE ==
[2024-12-20] MEDS ORDERED: Glucagon 1 MG/ML KIT IM PRN (14:10)
[2024-12-20] MEDS ORDERED: Dextrose 50% Abboject 50 ML SYRINGE SLOW IVP PRN (14:10)
[2024-12-20] MEDS ORDERED: Senokot S 8.6-50 MG TAB PO PRN (14:10)
[2024-12-20] MEDS ORDERED: Melatonin 3 MG TAB PO PRN (14:10)
[2024-12-20] MEDS ORDERED: Acetaminophen 325 MG TAB PO PRN (14:10)
[2024-12-20 15:26] VITALS: BMI 43.2
[2024-12-20] MEDS: Vancomycin 1 GM in Premix 1 BAG IVPB SCH (17:46)
[2024-12-20] MEDS: metFORMIN 500 MG TAB PO SCH (17:47)
[2024-12-20] MEDS: Mometasone 200 MCG/Formoterol 5 MCG 120 PUFF INHALER INH SCH (19:49)
[2024-12-20] MEDS: Carvedilol 3.125 MG TAB PO SCH (19:54)
[2024-12-20] MEDS: Famotidine 20 MG TAB PO SCH (19:54)
[2024-12-20] MEDS: Gabapentin 300 MG CAP PO SCH (19:55)
[2024-12-20] MEDS ORDERED: Vancomycin 1 GM in Sodium Chloride 0.9% 250 ML 250 ML IVPB SCH (21:00)
[2024-12-21 06:10] LABS: #Basophils 0.07 10x3/uL (0.0-0.2); #Eosinophils 0.61 10x3/uL (0.0-0.7); #Monocytes 0.50 10x3/uL (0.11-0.59); #Neutrophils 5.17 10x3/uL (1.40-6.50); %Basophils 0.9 % (0.0-1.0); %Eosinophils 7.7 % (0.0-10.0); %Lymphocytes 19.0 % (21.0-51.0); %Monocytes 6.3 % (0.0-10.0); %Neutrophils 65.7 % (42.0-75.0); Hematocrit 38.3 % (42.0-52.0); Hemoglobin 11.4 g/dL (14.0-18.0); Mean Corpuscular Hemoglobin 25.0 pg (27.0-31.0); Mean Corpuscular Volume 84.0 fL (78.0-98.0); Platelet Count 217 10x3/uL (130-400); Red Blood Cell (RBC) Count 4.56 mill/uL (4.70-6.10); White Blood Cell (WBC) Count 7.88 10x3/uL (4.8-10.8)
[2024-12-21 06:29] LABS: Vancomycin, Random 20.9 ug/mL (See Comment)
[2024-12-21 06:31] LABS: Anion Gap 12 mmol/L (10-20); BUN (Urea Nitrogen) 23 mg/dL (8.4-25.7); Calc. Creatinine Clearance 160 mL/min (70-130); Calcium 8.5 mg/dL (7.8-10.44); Carbon Dioxide 30 mmol/L (23-31); Chloride 106 mmol/L (98-107); Glucose 48 mg/dL (83-110); Potassium 3.9 mmol/L (3.5-5.1); Sodium 144 mmol/L (136-145)
[2024-12-21] MEDS: Aspirin 81 mg Enteric Coated Tablet PO SCH (08:55)
[2024-12-21] MEDS: Sertraline 100 MG TAB PO SCH (08:56)
[2024-12-21] MEDS: Spironolactone 25 MG TAB PO SCH (08:56)
[2024-12-21] MEDS: Ezetimibe 10 MG TAB PO SCH (08:56)
[2024-12-21] MEDS: Lisinopril 5 MG TAB PO SCH (08:57)
[2024-12-21] MEDS: Torsemide 20 MG TAB PO SCH (08:57)
[2024-12-21] MEDS: Enoxaparin 40 MG (0.4 mL) SYRINGE SC SCH (08:59)
[2024-12-21] MEDS: Vancomycin 1.25 GM / NS 250 ML VIAL-2-BAG IVPB SCH (21:27)
[2024-12-22 05:43] LABS: #Basophils 0.07 10x3/uL (0.0-0.2); #Eosinophils 0.63 10x3/uL (0.0-0.7); #Monocytes 0.63 10x3/uL (0.11-0.59); #Neutrophils 5.20 10x3/uL (1.40-6.50); %Basophils 0.8 % (0.0-1.0); %Eosinophils 7.1 % (0.0-10.0); %Lymphocytes 25.6 % (21.0-51.0); %Monocytes 7.1 % (0.0-10.0); %Neutrophils 59.1 % (42.0-75.0); Hematocrit 34.8 % (42.0-52.0); Hemoglobin 10.4 g/dL (14.0-18.0); Mean Corpuscular Hemoglobin 24.8 pg (27.0-31.0); Mean Corpuscular Volume 83.1 fL (78.0-98.0); Platelet Count 220 10x3/uL (130-400); Red Blood Cell (RBC) Count 4.19 mill/uL (4.70-6.10); White Blood Cell (WBC) Count 8.82 10x3/uL (4.8-10.8)
[2024-12-22 06:06] LABS: Anion Gap 13 mmol/L (10-20); BUN (Urea Nitrogen) 32 mg/dL (8.4-25.7); Calc. Creatinine Clearance 111 mL/min (70-130); Calcium 8.5 mg/dL (7.8-10.44); Carbon Dioxide 28 mmol/L (23-31); Chloride 104 mmol/L (98-107); Glucose 86 mg/dL (83-110); Potassium 3.8 mmol/L (3.5-5.1); Sodium 141 mmol/L (136-145)
[2024-12-22 06:13] LABS: Vancomycin, Random 23.6 ug/mL (See Comment)
[2024-12-22] MEDS ORDERED: Cefepime 2 GM VIAL ONE (11:18)
[2024-12-22] MEDS ORDERED: fentaNYL PF 100 MCG/2 ML SYRINGE ONE (11:36)
[2024-12-22] MEDS ORDERED: Lidocaine 1% PF 5 ML VIAL ONE (11:36)
[2024-12-22] MEDS ORDERED: PROPOFOL 20 ML ONE (11:36)
[2024-12-22] MEDS ORDERED: Lidocaine 2% 6 ML (Jelly) SYR ONE (11:37)
[2024-12-22] MEDS ORDERED: Ondansetron PF 4 MG/2 ML Vial ONE (11:40)
[2024-12-22] MEDS ORDERED: PHENYLEPHRINE-NS 100 MCG/ML 10 ML SYRINGE ONE (11:55)
[2024-12-22] MEDS ORDERED: Etomidate 40 MG (20 mL) VIAL ONE (11:56)
[2024-12-23 05:54] LABS: #Basophils 0.06 10x3/uL (0.0-0.2); #Eosinophils 0.75 10x3/uL (0.0-0.7); #Monocytes 0.63 10x3/uL (0.11-0.59); #Neutrophils 5.75 10x3/uL (1.40-6.50); %Basophils 0.7 % (0.0-1.0); %Eosinophils 8.5 % (0.0-10.0); %Lymphocytes 18.5 % (21.0-51.0); %Monocytes 7.1 % (0.0-10.0); %Neutrophils 64.9 % (42.0-75.0); Hematocrit 35.3 % (42.0-52.0); Hemoglobin 10.6 g/dL (14.0-18.0); Mean Corpuscular Hemoglobin 25.2 pg (27.0-31.0); Mean Corpuscular Volume 83.8 fL (78.0-98.0); Platelet Count 217 10x3/uL (130-400); Red Blood Cell (RBC) Count 4.21 mill/uL (4.70-6.10); White Blood Cell (WBC) Count 8.86 10x3/uL (4.8-10.8)
[2024-12-23 06:08] LABS: Anion Gap 12 mmol/L (10-20); BUN (Urea Nitrogen) 29 mg/dL (8.4-25.7); Calc. Creatinine Clearance 138 mL/min (70-130); Calcium 8.4 mg/dL (7.8-10.44); Carbon Dioxide 27 mmol/L (23-31); Chloride 107 mmol/L (98-107); Glucose 87 mg/dL (83-110); Potassium 4.4 mmol/L (3.5-5.1); Sodium 142 mmol/L (136-145)
[2024-12-23] MEDS: Aspirin 81 mg Enteric Coated Tablet PO SCH (08:30)
[2024-12-23] MEDS: Vancomycin 1.25 GM / NS 250 ML VIAL-2-BAG IVPB SCH (13:23)
[2024-12-24 06:43] LABS: #Basophils 0.05 10x3/uL (0.0-0.2); #Eosinophils 0.69 10x3/uL (0.0-0.7); #Monocytes 0.65 10x3/uL (0.11-0.59); #Neutrophils 5.08 10x3/uL (1.40-6.50); %Basophils 0.6 % (0.0-1.0); %Eosinophils 8.1 % (0.0-10.0); %Lymphocytes 23.6 % (21.0-51.0); %Monocytes 7.7 % (0.0-10.0); %Neutrophils 59.8 % (42.0-75.0); Hematocrit 34.7 % (42.0-52.0); Hemoglobin 10.6 g/dL (14.0-18.0); Mean Corpuscular Hemoglobin 25.3 pg (27.0-31.0); Mean Corpuscular Volume 82.8 fL (78.0-98.0); Platelet Count 213 10x3/uL (130-400); Red Blood Cell (RBC) Count 4.19 mill/uL (4.70-6.10); White Blood Cell (WBC) Count 8.49 10x3/uL (4.8-10.8)
[2024-12-24 06:58] LABS: Anion Gap 10 mmol/L (10-20); BUN (Urea Nitrogen) 31 mg/dL (8.4-25.7); Calc. Creatinine Clearance 146 mL/min (70-130); Calcium 8.5 mg/dL (7.8-10.44); Carbon Dioxide 29 mmol/L (23-31); Chloride 104 mmol/L (98-107); Glucose 108 mg/dL (83-110); Potassium 4.3 mmol/L (3.5-5.1); Sodium 139 mmol/L (136-145); Vancomycin, Random 20.8 ug/mL (See Comment)
[2024-12-24 11:12] VITALS: BMI 43.2
[2024-12-25 06:02] LABS: #Basophils 0.08 10x3/uL (0.0-0.2); #Eosinophils 0.63 10x3/uL (0.0-0.7); #Monocytes 0.61 10x3/uL (0.11-0.59); #Neutrophils 4.76 10x3/uL (1.40-6.50); %Basophils 1.0 % (0.0-1.0); %Eosinophils 7.5 % (0.0-10.0); %Lymphocytes 27.3 % (21.0-51.0); %Monocytes 7.3 % (0.0-10.0); %Neutrophils 56.5 % (42.0-75.0); Hematocrit 34.8 % (42.0-52.0); Hemoglobin 10.6 g/dL (14.0-18.0); Mean Corpuscular Hemoglobin 25.0 pg (27.0-31.0); Mean Corpuscular Volume 82.1 fL (78.0-98.0); Platelet Count 230 10x3/uL (130-400); Red Blood Cell (RBC) Count 4.24 mill/uL (4.70-6.10); White Blood Cell (WBC) Count 8.40 10x3/uL (4.8-10.8)
[2024-12-25 06:17] LABS: Anion Gap 14 mmol/L (10-20); BUN (Urea Nitrogen) 38 mg/dL (8.4-25.7); Calc. Creatinine Clearance 127 mL/min (70-130); Calcium 9.1 mg/dL (7.8-10.44); Carbon Dioxide 29 mmol/L (23-31); Chloride 102 mmol/L (98-107); Glucose 122 mg/dL (83-110); Potassium 4.0 mmol/L (3.5-5.1); Sodium 141 mmol/L (136-145)
[2024-12-26 05:46] LABS: #Basophils 0.08 10x3/uL (0.0-0.2); #Eosinophils 0.58 10x3/uL (0.0-0.7); #Monocytes 0.51 10x3/uL (0.11-0.59); #Neutrophils 5.00 10x3/uL (1.40-6.50); %Basophils 0.9 % (0.0-1.0); %Eosinophils 6.6 % (0.0-10.0); %Lymphocytes 29.9 % (21.0-51.0); %Monocytes 5.8 % (0.0-10.0); %Neutrophils 56.5 % (42.0-75.0); Hematocrit 35.7 % (42.0-52.0); Hemoglobin 10.8 g/dL (14.0-18.0); Mean Corpuscular Hemoglobin 25.0 pg (27.0-31.0); Mean Corpuscular Volume 82.6 fL (78.0-98.0); Platelet Count 248 10x3/uL (130-400); Red Blood Cell (RBC) Count 4.32 mill/uL (4.70-6.10); White Blood Cell (WBC) Count 8.85 10x3/uL (4.8-10.8)
[2024-12-26 06:01] LABS: Anion Gap 13 mmol/L (10-20); BUN (Urea Nitrogen) 49 mg/dL (8.4-25.7); Calc. Creatinine Clearance 121 mL/min (70-130); Calcium 9.5 mg/dL (7.8-10.44); Carbon Dioxide 30 mmol/L (23-31); Chloride 101 mmol/L (98-107); Glucose 141 mg/dL (83-110); Potassium 4.0 mmol/L (3.5-5.1); Sodium 140 mmol/L (136-145)
[2024-12-26] MEDS ORDERED: Lidocaine 1% PF 5 ML VIAL ONE ×2 (09:03→09:04)
[2024-12-26] MEDS ORDERED: Sodium Bicarbonate 2.5 MEQ/5 ML SDV ONE (09:03)
[2024-12-26] MEDS: Enoxaparin 40 MG (0.4 mL) SYRINGE SC SCH (20:37)
[2024-12-26] MEDS: Mupirocin 1 GM TUBE TP SCH (20:38)
[2024-12-27 05:54] LABS: #Basophils 0.08 10x3/uL (0.0-0.2); #Eosinophils 0.57 10x3/uL (0.0-0.7); #Monocytes 0.70 10x3/uL (0.11-0.59); #Neutrophils 5.38 10x3/uL (1.40-6.50); %Basophils 0.8 % (0.0-1.0); %Eosinophils 6.0 % (0.0-10.0); %Lymphocytes 29.2 % (21.0-51.0); %Monocytes 7.3 % (0.0-10.0); %Neutrophils 56.4 % (42.0-75.0); Hematocrit 34.8 % (42.0-52.0); Hemoglobin 10.6 g/dL (14.0-18.0); Mean Corpuscular Hemoglobin 25.2 pg (27.0-31.0); Mean Corpuscular Volume 82.7 fL (78.0-98.0); Platelet Count 237 10x3/uL (130-400); Red Blood Cell (RBC) Count 4.21 mill/uL (4.70-6.10); White Blood Cell (WBC) Count 9.55 10x3/uL (4.8-10.8)
[2024-12-27 06:12] LABS: Anion Gap 13 mmol/L (10-20); BUN (Urea Nitrogen) 61 mg/dL (8.4-25.7); Calc. Creatinine Clearance 116 mL/min (70-130); Calcium 9.5 mg/dL (7.8-10.44); Carbon Dioxide 30 mmol/L (23-31); Chloride 100 mmol/L (98-107); Glucose 147 mg/dL (83-110); Potassium 3.9 mmol/L (3.5-5.1); Sodium 139 mmol/L (136-145)
[2024-12-27 20:07] VITALS: BP 114/55; TEMP 97.6
== END 2024-12-27 22:56 | disposition short-term general hospital (02) | DRG 617 ==
LOC: T4-A 14:06
PROVIDERS: ADMIT Internal Medicine; ATTEND Student in an Organized Health Care Education/Training Program
PROC: 3E03329 Introduction of Other Anti-infective into Peripheral Vein, Percutaneous Approach (ICD-10-PCS; principal; 2024-12-20)
PROC: 5A09357 Assistance with Respiratory Ventilation, Less than 24 Consecutive Hours, Continuous Positive Airway Pressure (ICD-10-PCS; 2024-12-21)
PROC: 0Y6M0Z6 Detachment at Right Foot, Complete 3rd Ray, Open Approach (ICD-10-PCS; 2024-12-22)
PROC: 0Y6M0Z7 Detachment at Right Foot, Complete 4th Ray, Open Approach (ICD-10-PCS; 2024-12-22)
PROC: 0Y6M0Z8 Detachment at Right Foot, Complete 5th Ray, Open Approach (ICD-10-PCS; 2024-12-22)
PROC: 3E033XZ Introduction of Vasopressor into Peripheral Vein, Percutaneous Approach (ICD-10-PCS; 2024-12-22)
PROC: 02HV33Z Insertion of Infusion Device into Superior Vena Cava, Percutaneous Approach (ICD-10-PCS; 2024-12-26)
PROC: B5181ZA Fluoroscopy of Superior Vena Cava using Low Osmolar Contrast, Guidance (ICD-10-PCS; 2024-12-26)
DX: E11.69 Type 2 diabetes mellitus with other specified complication (principal); E11.52 Type 2 diabetes mellitus with diabetic peripheral angiopathy with gangrene; I50.42 Chronic combined systolic (congestive) and diastolic (congestive) heart failure; J96.11 Chronic respiratory failure with hypoxia; M86.172 Other acute osteomyelitis, left ankle and foot; Z68.41 Body mass index [BMI] 40.0-44.9, adult; I96 Gangrene, not elsewhere classified; E11.621 Type 2 diabetes mellitus with foot ulcer; L97.519 Non-pressure chronic ulcer of other part of right foot with unspecified severity; G47.33 Obstructive sleep apnea (adult) (pediatric); D64.9 Anemia, unspecified; I11.0 Hypertensive heart disease with heart failure; E78.5 Hyperlipidemia, unspecified; I25.10 Atherosclerotic heart disease of native coronary artery without angina pectoris; E11.649 Type 2 diabetes mellitus with hypoglycemia without coma; E66.01 Morbid (severe) obesity due to excess calories; Z89.421 Acquired absence of other right toe(s); Z88.0 Allergy status to penicillin; Z95.1 Presence of aortocoronary bypass graft; Z89.422 Acquired absence of other left toe(s); Z83.3 Family history of diabetes mellitus; Z98.890 Other specified postprocedural states; Z99.81 Dependence on supplemental oxygen; Z87.891 Personal history of nicotine dependence; Z89.411 Acquired absence of right great toe; I25.2 Old myocardial infarction; J44.9 Chronic obstructive pulmonary disease, unspecified; B96.5 Pseudomonas (aeruginosa) (mallei) (pseudomallei) as the cause of diseases classified elsewhere; B95.2 Enterococcus as the cause of diseases classified elsewhere
CPT/HCPCS: 36415; 36416; 36573; 80048; 80202; 85025; 86141; 87070; 87077; 87186; 87205; 88305; 88311; 93005; 93010; 94664; 97139; C1751; J0665; J0692; J0878; J1650; J1815; J2405; J2704; J3373; J7050; J7120

== ENCOUNTER 2025-01-10 16:50 | Inpatient (IN) | payer MEDICARE ==
[2025-01-10] MEDS ORDERED: Calcium Carbonate 500 MG ChewTAB PO PRN (23:08)
[2025-01-10] MEDS ORDERED: Ondansetron PF 4 MG/2 ML Vial IVP PRN (23:08)
[2025-01-10] MEDS ORDERED: Acetaminophen 325 MG TAB PO PRN (23:08)
[2025-01-11] MEDS ORDERED: Dextrose 50% Abboject 50 ML SYRINGE SLOW IVP PRN (00:55)
[2025-01-11] MEDS ORDERED: Glucagon 1 MG/ML KIT IM PRN (00:55)
[2025-01-11 03:59] LABS: #Basophils 0.04 10x3/uL (0.0-0.2); #Eosinophils 1.32 10x3/uL (0.0-0.7); #Monocytes 0.70 10x3/uL (0.11-0.59); #Neutrophils 9.77 10x3/uL (1.40-6.50); %Basophils 0.3 % (0.0-1.0); %Eosinophils 10.1 % (0.0-10.0); %Lymphocytes 8.4 % (21.0-51.0); %Monocytes 5.4 % (0.0-10.0); %Neutrophils 75.1 % (42.0-75.0); Hematocrit 34.0 % (42.0-52.0); Hemoglobin 10.5 g/dL (14.0-18.0); Mean Corpuscular Hemoglobin 25.2 pg (27.0-31.0); Mean Corpuscular Volume 81.7 fL (78.0-98.0); Platelet Count 209 10x3/uL (130-400); Red Blood Cell (RBC) Count 4.16 mill/uL (4.70-6.10); White Blood Cell (WBC) Count 13.02 10x3/uL (4.8-10.8)
[2025-01-11] MEDS ORDERED: Cefepime 2 GM VIAL IVPB SCH (04:00)
[2025-01-11 04:34] LABS: ALT (SGPT) 24 U/L (Less than 45); AST (SGOT) 23 U/L (11-34); Albumin 2.6 g/dL (3.1-4.5); Alkaline Phosphatase 67 U/L (40-110); Anion Gap 15 mmol/L (10-20); Bilirubin, Total 0.3 mg/dL (0.3-1.2); Calc. Creatinine Clearance 87 mL/min (70-130); Calcium 9.2 mg/dL (7.8-10.44); Carbon Dioxide 20 mmol/L (23-31); Chloride 109 mmol/L (98-107); Globulin 4.3 g/dL (2.4-3.5); Glucose 178 mg/dL (83-110); Potassium 4.3 mmol/L (3.5-5.1); Sodium 140 mmol/L (136-145)
[2025-01-11 04:40] LABS: BUN (Urea Nitrogen) 133 mg/dL (8.4-25.7)
[2025-01-11] MEDS: Mometasone 200 MCG/Formoterol 5 MCG 120 PUFF INHALER INH SCH (07:13)
[2025-01-11] MEDS ORDERED: metFORMIN 500 MG TAB PO SCH (08:00)
[2025-01-11 09:35] LABS: Actual Bicarbonate (HCO3a) 20.0 mEq/L (22-28); Base Excess (BEa) -7.6 mEq/L (-2.0 to +3.0); CO2 Tension 49.5 mmHg (35.0-45.0); Calcium, Ionized (arterial) 1.27 mmol/L (1.12-1.30); Hematocrit-ABG 37 % (42.0-52.0); Hemoglobin (Hb) 12.7 g/dL (14.0-18.0); O2 Tension (PaO2), arterial 83.8 mmHg (> 70.0); Potassium - ABG Lab 4.36 mmol/L (3.70-5.30); pH, Arterial 7.225 (7.35-7.45)
[2025-01-11 10:20] LABS: Puncture Site Right Radial artery
[2025-01-11] MEDS: NOREPINEPHRINE 8 MG/250 ML-D5W 250 ML IVPB SCH (10:32)
[2025-01-11] MEDS: NOREPINEPHRINE 8 MG/250 ML-D5W 250 ML ONE (11:10)
[2025-01-11] MEDS: Spironolactone 25 MG TAB PO SCH (11:11)
[2025-01-11] MEDS: Aspirin 81 mg Enteric Coated Tablet PO SCH (11:11)
[2025-01-11] MEDS: Lisinopril 5 MG TAB PO SCH (11:12)
[2025-01-11] MEDS: Ezetimibe 10 MG TAB PO SCH (11:12)
[2025-01-11] MEDS: Famotidine 20 MG TAB PO SCH ×2 (11:12→20:54)
[2025-01-11] MEDS: Carvedilol 3.125 MG TAB PO SCH (11:12)
[2025-01-11] MEDS: Gabapentin 300 MG CAP PO SCH (11:12)
[2025-01-11] MEDS: Torsemide 20 MG TAB PO SCH (11:13)
[2025-01-11] MEDS: Sertraline 100 MG TAB PO SCH (11:13)
[2025-01-11] MEDS: Enoxaparin 40 MG (0.4 mL) SYRINGE SC SCH (11:32)
[2025-01-11 12:29] LABS: Thyroid Stimulating Hormone 1.5592 uIU/mL (0.35-4.94); Vitamin B12 303.0 pg/mL (211-911)
[2025-01-11] MEDS ORDERED: Insulin Glargine 30 UNITS/0.3 ML VIAL SC SCH (21:00)
[2025-01-12 07:16] LABS: #Basophils 0.03 10x3/uL (0.0-0.2); #Eosinophils 1.28 10x3/uL (0.0-0.7); #Monocytes 0.68 10x3/uL (0.11-0.59); #Neutrophils 9.33 10x3/uL (1.40-6.50); %Basophils 0.2 % (0.0-1.0); %Eosinophils 10.2 % (0.0-10.0); %Lymphocytes 8.7 % (21.0-51.0); %Monocytes 5.4 % (0.0-10.0); %Neutrophils 74.9 % (42.0-75.0); Hematocrit 38.3 % (42.0-52.0); Hemoglobin 11.6 g/dL (14.0-18.0); Mean Corpuscular Hemoglobin 25.3 pg (27.0-31.0); Mean Corpuscular Volume 83.4 fL (78.0-98.0); Platelet Count 252 10x3/uL (130-400); Red Blood Cell (RBC) Count 4.59 mill/uL (4.70-6.10); White Blood Cell (WBC) Count 12.49 10x3/uL (4.8-10.8)
[2025-01-12 07:40] LABS: Anion Gap 22 mmol/L (10-20); BUN (Urea Nitrogen) 114 mg/dL (8.4-25.7); Calc. Creatinine Clearance 102 mL/min (70-130); Calcium 9.7 mg/dL (7.8-10.44); Carbon Dioxide 22 mmol/L (23-31); Chloride 114 mmol/L (98-107); Glucose 197 mg/dL (83-110); Potassium 3.9 mmol/L (3.5-5.1); Sodium 154 mmol/L (136-145)
[2025-01-12 12:51] LABS: Sodium 155 mmol/L (136-145)
[2025-01-13 05:37] LABS: #Basophils 0.04 10x3/uL (0.0-0.2); #Eosinophils 1.37 10x3/uL (0.0-0.7); #Monocytes 0.90 10x3/uL (0.11-0.59); #Neutrophils 9.50 10x3/uL (1.40-6.50); %Basophils 0.3 % (0.0-1.0); %Eosinophils 10.6 % (0.0-10.0); %Lymphocytes 8.3 % (21.0-51.0); %Monocytes 6.9 % (0.0-10.0); %Neutrophils 73.4 % (42.0-75.0); Hematocrit 38.3 % (42.0-52.0); Hemoglobin 11.6 g/dL (14.0-18.0); Mean Corpuscular Hemoglobin 25.4 pg (27.0-31.0); Mean Corpuscular Volume 83.8 fL (78.0-98.0); Platelet Count 261 10x3/uL (130-400); Red Blood Cell (RBC) Count 4.57 mill/uL (4.70-6.10); White Blood Cell (WBC) Count 12.95 10x3/uL (4.8-10.8)
[2025-01-13 06:38] LABS: Anion Gap 21 mmol/L (10-20); BUN (Urea Nitrogen) 113 mg/dL (8.4-25.7); Calc. Creatinine Clearance 104 mL/min (70-130); Calcium 10.0 mg/dL (7.8-10.44); Carbon Dioxide 18 mmol/L (23-31); Chloride 120 mmol/L (98-107); Glucose 249 mg/dL (83-110); Potassium 3.8 mmol/L (3.5-5.1); Sodium 155 mmol/L (136-145)
[2025-01-14 11:33] LABS: Hematocrit 38.3 % (42.0-52.0); Hemoglobin 11.5 g/dL (14.0-18.0); Mean Corpuscular Hemoglobin 25.1 pg (27.0-31.0); Mean Corpuscular Volume 83.4 fL (78.0-98.0); Platelet Count 262 10x3/uL (130-400); Red Blood Cell (RBC) Count 4.59 mill/uL (4.70-6.10); White Blood Cell (WBC) Count 12.35 10x3/uL (4.8-10.8)
[2025-01-14 12:19] LABS: Anion Gap 20 mmol/L (10-20); BUN (Urea Nitrogen) 94 mg/dL (8.4-25.7); Calc. Creatinine Clearance 103 mL/min (70-130); Calcium 10.1 mg/dL (7.8-10.44); Carbon Dioxide 21 mmol/L (23-31); Chloride 124 mmol/L (98-107); Glucose 251 mg/dL (83-110); Potassium 3.8 mmol/L (3.5-5.1); Sodium 161 mmol/L (136-145)
[2025-01-14 15:37] LABS: Osmolality, Urine 377 mOsm/kg (50-1200)
[2025-01-14 16:05] LABS: Osmolality, Serum 367 mOsm/kg (280-301)
[2025-01-14] MEDS: Melatonin 3 MG TAB PO PRN (19:23)
[2025-01-15 04:11] LABS: Hematocrit 38.5 % (42.0-52.0); Hemoglobin 11.4 g/dL (14.0-18.0); Mean Corpuscular Hemoglobin 24.6 pg (27.0-31.0); Mean Corpuscular Volume 83.0 fL (78.0-98.0); Platelet Count 256 10x3/uL (130-400); Red Blood Cell (RBC) Count 4.64 mill/uL (4.70-6.10); White Blood Cell (WBC) Count 13.59 10x3/uL (4.8-10.8)
[2025-01-15 05:01] LABS: Anion Gap 19 mmol/L (10-20); BUN (Urea Nitrogen) 96 mg/dL (8.4-25.7); Calc. Creatinine Clearance 92 mL/min (70-130); Calcium 10.1 mg/dL (7.8-10.44); Carbon Dioxide 23 mmol/L (23-31); Chloride 120 mmol/L (98-107); Glucose 270 mg/dL (83-110); Potassium 3.6 mmol/L (3.5-5.1); Sodium 158 mmol/L (136-145)
[2025-01-15 14:14] LABS: Actual Bicarbonate (HCO3a) 24.2 mEq/L (22-28); Base Excess (BEa) -1.4 mEq/L (-2.0 to +3.0); CO2 Tension 44.0 mmHg (35.0-45.0); Calcium, Ionized (arterial) 1.25 mmol/L (1.12-1.30); Hematocrit-ABG 39 % (42.0-52.0); Hemoglobin (Hb) 13.1 g/dL (14.0-18.0); O2 Tension (PaO2), arterial 67.5 mmHg (> 70.0); Potassium - ABG Lab 3.62 mmol/L (3.70-5.30); pH, Arterial 7.358 (7.35-7.45)
[2025-01-15 14:18] LABS: Puncture Site Right Radial artery
[2025-01-15 14:19] LABS: ALV-art Gradient 234.000 mmHg (0-20)
[2025-01-15 19:34] LABS: Anion Gap 19 mmol/L (10-20); BUN (Urea Nitrogen) 99 mg/dL (8.4-25.7); Calc. Creatinine Clearance 76 mL/min (70-130); Calcium 9.6 mg/dL (7.8-10.44); Carbon Dioxide 21 mmol/L (23-31); Chloride 119 mmol/L (98-107); Glucose 341 mg/dL (83-110); Potassium 3.5 mmol/L (3.5-5.1); Sodium 155 mmol/L (136-145)
[2025-01-15] MEDS: Insulin Glargine 30 UNITS/0.3 ML VIAL SC SCH (21:21)
[2025-01-15] MEDS: Potassium Chloride 40 MEQ in Premix 1 BAG IVPB SCH (22:00)
[2025-01-16 04:37] LABS: Hematocrit 34.8 % (42.0-52.0); Hemoglobin 10.4 g/dL (14.0-18.0); Mean Corpuscular Hemoglobin 25.1 pg (27.0-31.0); Mean Corpuscular Volume 83.9 fL (78.0-98.0); Platelet Count 246 10x3/uL (130-400); Red Blood Cell (RBC) Count 4.15 mill/uL (4.70-6.10); White Blood Cell (WBC) Count 13.74 10x3/uL (4.8-10.8)
[2025-01-16 04:58] LABS: Anion Gap 16 mmol/L (10-20); BUN (Urea Nitrogen) 111 mg/dL (8.4-25.7); Calc. Creatinine Clearance 69 mL/min (70-130); Calcium 9.1 mg/dL (7.8-10.44); Carbon Dioxide 22 mmol/L (23-31); Chloride 116 mmol/L (98-107); Glucose 363 mg/dL (83-110); Potassium 3.9 mmol/L (3.5-5.1); Sodium 150 mmol/L (136-145)
[2025-01-16] MEDS ORDERED: Etomidate 40 MG (20 mL) VIAL ONE (14:08)
[2025-01-16] MEDS ORDERED: SUCCINYLCHOLINE/SOD CL,ISO/PF 200 MG/10 ML SYRINGE FS ONE (14:08)
[2025-01-16] MEDS ORDERED: Propofol BOLUS 1,000 MG/100 ML VIAL IV PRN (14:15)
[2025-01-16] MEDS ORDERED: DISCONTINUE PREVIOUS NARCOTIC PAIN MEDICATIONS AND BENZODIAZEPINES FS SCH (14:15)
[2025-01-16] MEDS ORDERED: Fentanyl BOLUS 100 ML IVPB PRN (14:15)
[2025-01-16] MEDS: Ventilator Sedation Protocol 1 EACH FS ONE (14:38)
[2025-01-16 14:55] LABS: Actual Bicarbonate (HCO3a) 20.6 mEq/L (22-28); Base Excess (BEa) -6.4 mEq/L (-2.0 to +3.0); CO2 Tension 47.5 mmHg (35.0-45.0); Calcium, Ionized (arterial) 1.21 mmol/L (1.12-1.30); Hematocrit-ABG 34 % (42.0-52.0); Hemoglobin (Hb) 11.6 g/dL (14.0-18.0); O2 Tension (PaO2), arterial 61.9 mmHg (> 70.0); Potassium - ABG Lab 3.91 mmol/L (3.70-5.30); pH, Arterial 7.256 (7.35-7.45)
[2025-01-16 15:06] LABS: Puncture Site Right Radial artery
[2025-01-16 15:07] LABS: ALV-art Gradient 377.825 mmHg (0-20)
[2025-01-16] MEDS: Vasopressin In 0.9 % NaCl 100 ML IV SCH (22:33)
[2025-01-16] MEDS: Albumin 25% 25 GM (100 mL) BOT IVPB SCH (22:59)
[2025-01-16 23:15] LABS: Anion Gap 19 mmol/L (10-20); BUN (Urea Nitrogen) 115 mg/dL (8.4-25.7); Calc. Creatinine Clearance 0 mL/min (70-130); Calcium 9.4 mg/dL (7.8-10.44); Carbon Dioxide 20 mmol/L (23-31); Chloride 111 mmol/L (98-107); Glucose 344 mg/dL (83-110); Magnesium 1.7 mg/dL (1.6-2.6); Potassium 4.8 mmol/L (3.5-5.1); Sodium 145 mmol/L (136-145)
[2025-01-17] MEDS: Scopolamine 1 mg/72 hour Patch TD SCH (00:03)
[2025-01-17] MEDS ORDERED: MAGNESIUM IVPB SCH (00:15)
[2025-01-17 04:30] LABS: CK (CPK) 75 U/L (30-200); Magnesium 2.4 mg/dL (1.6-2.6)
[2025-01-17 07:02] LABS: ALT (SGPT) 32 U/L (Less than 45); AST (SGOT) 21 U/L (11-34); Albumin 2.1 g/dL (3.1-4.5); Alkaline Phosphatase 83 U/L (40-110); Anion Gap 21 mmol/L (10-20); BUN (Urea Nitrogen) 124 mg/dL (8.4-25.7); Bilirubin, Total 0.6 mg/dL (0.3-1.2); Calc. Creatinine Clearance 53 mL/min (70-130); Calcium 9.0 mg/dL (7.8-10.44); Carbon Dioxide 18 mmol/L (23-31); Chloride 111 mmol/L (98-107); Globulin 5.2 g/dL (2.4-3.5); Glucose 384 mg/dL (83-110); Potassium 4.9 mmol/L (3.5-5.1); Sodium 145 mmol/L (136-145)
[2025-01-17 07:22] LABS: #Basophils 0.03 10x3/uL (0.0-0.2); #Eosinophils 0.17 10x3/uL (0.0-0.7); #Monocytes 0.22 10x3/uL (0.11-0.59); #Neutrophils 7.59 10x3/uL (1.40-6.50); %Basophils 0.3 % (0.0-1.0); %Eosinophils 1.8 % (0.0-10.0); %Lymphocytes 13.7 % (21.0-51.0); %Monocytes 2.3 % (0.0-10.0); %Neutrophils 78.7 % (42.0-75.0); Hematocrit 34.9 % (42.0-52.0); Hemoglobin 10.0 g/dL (14.0-18.0); Mean Corpuscular Hemoglobin 24.6 pg (27.0-31.0); Mean Corpuscular Volume 86.0 fL (78.0-98.0); Platelet Count 228 10x3/uL (130-400); Red Blood Cell (RBC) Count 4.06 mill/uL (4.70-6.10); White Blood Cell (WBC) Count 9.64 10x3/uL (4.8-10.8)
[2025-01-17] MEDS: Insulin Glargine 30 UNITS/0.3 ML VIAL SC SCH (08:39)
[2025-01-17] MEDS: Albumin 25% 25 GM (100 mL) BOT IVPB SCH (08:40)
[2025-01-17] MEDS: Aspirin Chewable 81 MG TAB PO SCH (10:10)
[2025-01-17] MEDS: Torsemide 20 MG TAB PO SCH (12:14)
[2025-01-17] MEDS: Pantoprazole 40 MG VIAL IVP SCH (12:15)
[2025-01-17] MEDS: Furosemide 40 MG (4 mL) VIAL SLOW IVP SCH (15:38)
[2025-01-17] MEDS ORDERED: Famotidine 20 MG TAB PO SCH (21:00)
[2025-01-17 21:46] LABS: Bacteria/HPF None Seen HPF (None Seen); Glucose, Urine (Dipstick) 200 mg/dL (Negative); Leukocyte 250 Leu/uL (Negative); Protein, Urine (Dipstick) 70 mg/dL (Neg-Trace); RBC/HPF 21-50 HPF (0-3); Specific Gravity, Urine 1.015 (1.002-1.036); WBC/HPF Greater than 50 HPF (0-3)
[2025-01-18 03:46] LABS: #Basophils Less than 0.03 10x3/uL (0.0-0.2); #Eosinophils Less than 0.03 10x3/uL (0.0-0.7); #Monocytes 0.33 10x3/uL (0.11-0.59); #Neutrophils 5.31 10x3/uL (1.40-6.50); %Basophils 0.0 % (0.0-1.0); %Eosinophils 0.1 % (0.0-10.0); %Lymphocytes 15.7 % (21.0-51.0); %Monocytes 4.8 % (0.0-10.0); %Neutrophils 77.2 % (42.0-75.0); Hematocrit 29.9 % (42.0-52.0); Hemoglobin 9.0 g/dL (14.0-18.0); Mean Corpuscular Hemoglobin 25.1 pg (27.0-31.0); Mean Corpuscular Volume 83.5 fL (78.0-98.0); Platelet Count 169 10x3/uL (130-400); Red Blood Cell (RBC) Count 3.58 mill/uL (4.70-6.10); White Blood Cell (WBC) Count 6.88 10x3/uL (4.8-10.8)
[2025-01-18 04:13] LABS: BUN (Urea Nitrogen) 129 mg/dL (8.4-25.7)
[2025-01-18 04:18] LABS: ALT (SGPT) 29 U/L (Less than 45); AST (SGOT) 19 U/L (11-34); Albumin 2.8 g/dL (3.1-4.5); Alkaline Phosphatase 59 U/L (40-110); Anion Gap 20 mmol/L (10-20); Bilirubin, Total 0.4 mg/dL (0.3-1.2); Calc. Creatinine Clearance 45 mL/min (70-130); Calcium 8.6 mg/dL (7.8-10.44); Carbon Dioxide 18 mmol/L (23-31); Chloride 110 mmol/L (98-107); Globulin 4.3 g/dL (2.4-3.5); Glucose 363 mg/dL (83-110); Magnesium 2.5 mg/dL (1.6-2.6); Potassium 4.7 mmol/L (3.5-5.1); Sodium 143 mmol/L (136-145)
[2025-01-18 07:33] LABS: Actual Bicarbonate (HCO3a) 19.2 mEq/L (22-28); Base Excess (BEa) -7.8 mEq/L (-2.0 to +3.0); CO2 Tension 45.5 mmHg (35.0-45.0); Calcium, Ionized (arterial) 1.18 mmol/L (1.12-1.30); Hematocrit-ABG 31 % (42.0-52.0); Hemoglobin (Hb) 10.7 g/dL (14.0-18.0); O2 Tension (PaO2), arterial 62.0 mmHg (> 70.0); Potassium - ABG Lab 4.85 mmol/L (3.70-5.30); pH, Arterial 7.243 (7.35-7.45)
[2025-01-18 07:35] LABS: ALV-art Gradient 166.325 mmHg (0-20); Puncture Site Right Radial artery
[2025-01-18] MEDS: Pantoprazole 40 MG VIAL IVP SCH (10:54)
[2025-01-18] MEDS: Torsemide 20 MG TAB PO SCH (11:45)
[2025-01-18] MEDS: Albumin 25% 25 GM (100 mL) BOT IVPB SCH (11:46)
[2025-01-18] MEDS ORDERED: [UNRECOGNIZED DRUG - OTHER] IVPB PRN (13:24)
[2025-01-18] MEDS: Insulin Glargine 30 UNITS/0.3 ML VIAL SC SCH (15:13)
[2025-01-18] MEDS: INSULIN REGULAR IN 0.9 % NACL 100 ML IVPB SCH (16:51)
[2025-01-19 03:55] LABS: #Basophils Less than 0.03 10x3/uL (0.0-0.2); #Eosinophils 0.05 10x3/uL (0.0-0.7); #Monocytes 1.12 10x3/uL (0.11-0.59); #Neutrophils 8.51 10x3/uL (1.40-6.50); %Basophils 0.2 % (0.0-1.0); %Eosinophils 0.4 % (0.0-10.0); %Lymphocytes 14.5 % (21.0-51.0); %Monocytes 9.3 % (0.0-10.0); %Neutrophils 70.7 % (42.0-75.0); Hematocrit 34.7 % (42.0-52.0); Hemoglobin 10.4 g/dL (14.0-18.0); Mean Corpuscular Hemoglobin 24.8 pg (27.0-31.0); Mean Corpuscular Volume 82.6 fL (78.0-98.0); Platelet Count 212 10x3/uL (130-400); Red Blood Cell (RBC) Count 4.20 mill/uL (4.70-6.10); White Blood Cell (WBC) Count 12.03 10x3/uL (4.8-10.8)
[2025-01-19 04:21] LABS: ALT (SGPT) 26 U/L (Less than 45); AST (SGOT) 20 U/L (11-34); Albumin 2.6 g/dL (3.1-4.5); Alkaline Phosphatase 58 U/L (40-110); Anion Gap 21 mmol/L (10-20); BUN (Urea Nitrogen) 155 mg/dL (8.4-25.7); Bilirubin, Total 0.4 mg/dL (0.3-1.2); Calc. Creatinine Clearance 42 mL/min (70-130); Calcium 8.5 mg/dL (7.8-10.44); Carbon Dioxide 19 mmol/L (23-31); Chloride 111 mmol/L (98-107); Globulin 4.2 g/dL (2.4-3.5); Glucose 173 mg/dL (83-110); Magnesium 2.4 mg/dL (1.6-2.6); Potassium 4.2 mmol/L (3.5-5.1); Sodium 147 mmol/L (136-145)
[2025-01-19 05:25] VITALS: BMI 42.3
[2025-01-19] MEDS: Insulin Glargine 30 UNITS/0.3 ML VIAL SC SCH ×2 (11:30→21:01)
[2025-01-19] MEDS: Albumin 25% 25 GM (100 mL) BOT IVPB SCH (11:31)
[2025-01-19] MEDS: Vancomycin (BATCH) 2.5 GM in Premix 1 BAG IVPB SCH (14:23)
[2025-01-19] MEDS ORDERED: Vancomycin Dose by Levels Sliding Scale (Wt > 99) FS SCH (15:30)
[2025-01-19] MEDS: Metoclopramide HCl 10 MG (2 mL) VIAL IVP SCH (17:02)
[2025-01-19] MEDS: Senokot S 8.6-50 MG TAB PER TUBE SCH (20:59)
[2025-01-20 04:53] LABS: #Basophils 0.03 10x3/uL (0.0-0.2); #Eosinophils 0.19 10x3/uL (0.0-0.7); #Monocytes 1.08 10x3/uL (0.11-0.59); #Neutrophils 6.84 10x3/uL (1.40-6.50); %Basophils 0.3 % (0.0-1.0); %Eosinophils 1.7 % (0.0-10.0); %Lymphocytes 20.2 % (21.0-51.0); %Monocytes 9.9 % (0.0-10.0); %Neutrophils 63.0 % (42.0-75.0); Hematocrit 33.7 % (42.0-52.0); Hemoglobin 10.2 g/dL (14.0-18.0); Mean Corpuscular Hemoglobin 24.5 pg (27.0-31.0); Mean Corpuscular Volume 81.0 fL (78.0-98.0); Platelet Count 206 10x3/uL (130-400); Red Blood Cell (RBC) Count 4.16 mill/uL (4.70-6.10); White Blood Cell (WBC) Count 10.86 10x3/uL (4.8-10.8)
[2025-01-20 05:06] LABS: BUN (Urea Nitrogen) 164 mg/dL (8.4-25.7)
[2025-01-20 05:08] LABS: ALT (SGPT) 20 U/L (Less than 45); AST (SGOT) 16 U/L (11-34); Albumin 3.1 g/dL (3.1-4.5); Alkaline Phosphatase 51 U/L (40-110); Anion Gap 24 mmol/L (10-20); Bilirubin, Total 0.6 mg/dL (0.3-1.2); Calc. Creatinine Clearance 42 mL/min (70-130); Calcium 8.2 mg/dL (7.8-10.44); Carbon Dioxide 17 mmol/L (23-31); Chloride 113 mmol/L (98-107); Globulin 3.7 g/dL (2.4-3.5); Glucose 293 mg/dL (83-110); Potassium 4.2 mmol/L (3.5-5.1); Sodium 150 mmol/L (136-145)
[2025-01-20 06:38] LABS: Magnesium 2.3 mg/dL (1.6-2.6)
[2025-01-20] MEDS ORDERED: Insulin Glargine 30 UNITS/0.3 ML VIAL SC SCH (09:40)
[2025-01-20] MEDS: Insulin Glargine 30 UNITS/0.3 ML VIAL SC SCH ×3 (10:06→20:05)
[2025-01-20 10:30] LABS: Vancomycin, Trough 19.2 ug/mL
[2025-01-20] MEDS: Vancomycin HCl 750 MG in Sodium Chloride 0.9% 250 ML 250 ML IVPB SCH (12:29)
[2025-01-20] MEDS: Phenylephrine 40 MG/NS 250 ML 250 ML IVPB SCH (21:10)
[2025-01-21] MEDS: Phenylephrine 40 MG/NS 250 ML 250 ML ONE (01:06)
[2025-01-21 04:30] LABS: #Basophils 0.05 10x3/uL (0.0-0.2); #Eosinophils 0.49 10x3/uL (0.0-0.7); #Monocytes 1.36 10x3/uL (0.11-0.59); #Neutrophils 9.39 10x3/uL (1.40-6.50); %Basophils 0.4 % (0.0-1.0); %Eosinophils 3.5 % (0.0-10.0); %Lymphocytes 15.4 % (21.0-51.0); %Monocytes 9.6 % (0.0-10.0); %Neutrophils 66.2 % (42.0-75.0); Hematocrit 37.0 % (42.0-52.0); Hemoglobin 11.2 g/dL (14.0-18.0); Mean Corpuscular Hemoglobin 24.7 pg (27.0-31.0); Mean Corpuscular Volume 81.7 fL (78.0-98.0); Platelet Count 219 10x3/uL (130-400); Red Blood Cell (RBC) Count 4.53 mill/uL (4.70-6.10); White Blood Cell (WBC) Count 14.16 10x3/uL (4.8-10.8)
[2025-01-21 04:52] LABS: ALT (SGPT) 21 U/L (Less than 45); AST (SGOT) 18 U/L (11-34); Albumin 3.2 g/dL (3.1-4.5); Alkaline Phosphatase 53 U/L (40-110); Anion Gap 22 mmol/L (10-20); Bilirubin, Total 0.5 mg/dL (0.3-1.2); Calc. Creatinine Clearance 55 mL/min (70-130); Calcium 8.4 mg/dL (7.8-10.44); Carbon Dioxide 19 mmol/L (23-31); Chloride 115 mmol/L (98-107); Globulin 4.0 g/dL (2.4-3.5); Glucose 292 mg/dL (83-110); Potassium 3.9 mmol/L (3.5-5.1); Sodium 152 mmol/L (136-145)
[2025-01-21 05:06] LABS: BUN (Urea Nitrogen) 176 mg/dL (8.4-25.7)
[2025-01-21 07:31] LABS: Urea Nitrogen, Random Urine 567.0 mg/dl
[2025-01-21] MEDS: Insulin Glargine 30 UNITS/0.3 ML VIAL SC SCH ×2 (08:55→20:16)
[2025-01-21 12:43] LABS: Vancomycin, Trough 20.1 ug/mL
[2025-01-21] MEDS ORDERED: Vancomycin HCl 750 MG in Sodium Chloride 0.9% 250 ML 250 ML IVPB SCH (13:45)
[2025-01-21] MEDS: Vancomycin HCl 750 MG in Sodium Chloride 0.9% 250 ML 250 ML IVPB SCH (14:22)
[2025-01-21 14:58] LABS: Albumin 2.9 g/dL (3.1-4.5); Anion Gap 22 mmol/L (10-20); Calc. Creatinine Clearance 53 mL/min (70-130); Calcium 8.2 mg/dL (7.8-10.44); Carbon Dioxide 19 mmol/L (23-31); Chloride 114 mmol/L (98-107); Glucose 310 mg/dL (83-110); Potassium 4.2 mmol/L (3.5-5.1); Sodium 151 mmol/L (136-145)
[2025-01-21 14:59] LABS: BUN (Urea Nitrogen) 169 mg/dL (8.4-25.7)
[2025-01-21 15:09] LABS: BUN/Creatinine Ratio 62.13
[2025-01-21 17:08] VITALS: BMI 41.7
[2025-01-22 05:08] LABS: Vancomycin, Random 23.4 ug/mL (See Comment)
[2025-01-22 05:11] LABS: ALT (SGPT) 22 U/L (Less than 45); AST (SGOT) 19 U/L (11-34); Albumin 2.9 g/dL (3.1-4.5); Alkaline Phosphatase 60 U/L (40-110); Anion Gap 21 mmol/L (10-20); Bilirubin, Total 0.4 mg/dL (0.3-1.2); Calc. Creatinine Clearance 62 mL/min (70-130); Calcium 8.5 mg/dL (7.8-10.44); Carbon Dioxide 18 mmol/L (23-31); Chloride 116 mmol/L (98-107); Globulin 4.1 g/dL (2.4-3.5); Glucose 269 mg/dL (83-110); Potassium 3.7 mmol/L (3.5-5.1); Sodium 151 mmol/L (136-145)
[2025-01-22 05:18] LABS: BUN (Urea Nitrogen) 161 mg/dL (8.4-25.7)
[2025-01-22 06:36] LABS: #Basophils 0.06 10x3/uL (0.0-0.2); #Eosinophils 1.15 10x3/uL (0.0-0.7); #Monocytes 1.29 10x3/uL (0.11-0.59); #Neutrophils 10.40 10x3/uL (1.40-6.50); %Basophils 0.4 % (0.0-1.0); %Eosinophils 7.0 % (0.0-10.0); %Lymphocytes 17.8 % (21.0-51.0); %Monocytes 7.8 % (0.0-10.0); %Neutrophils 62.9 % (42.0-75.0); Hematocrit 36.3 % (42.0-52.0); Hemoglobin 11.2 g/dL (14.0-18.0); Mean Corpuscular Hemoglobin 25.0 pg (27.0-31.0); Mean Corpuscular Volume 81.0 fL (78.0-98.0); Platelet Count 240 10x3/uL (130-400); Red Blood Cell (RBC) Count 4.48 mill/uL (4.70-6.10); White Blood Cell (WBC) Count 16.51 10x3/uL (4.8-10.8)
[2025-01-22] MEDS: Insulin Glargine 30 UNITS/0.3 ML VIAL SC SCH (09:12)
[2025-01-22] MEDS: Albumin 25% 25 GM (100 mL) BOT IVPB SCH (11:22)
[2025-01-22 18:11] LABS: BUN (Urea Nitrogen) 152 mg/dL (8.4-25.7)
[2025-01-22 18:16] LABS: Albumin 2.9 g/dL (3.1-4.5); Anion Gap 20 mmol/L (10-20); Calc. Creatinine Clearance 70 mL/min (70-130); Calcium 8.2 mg/dL (7.8-10.44); Carbon Dioxide 19 mmol/L (23-31); Chloride 112 mmol/L (98-107); Glucose 296 mg/dL (83-110); Potassium 3.3 mmol/L (3.5-5.1); Sodium 148 mmol/L (136-145)
[2025-01-22 18:17] LABS: BUN/Creatinine Ratio 73.08
[2025-01-22] MEDS: Potassium Chloride 40 MEQ in Premix 1 BAG IVPB SCH (20:02)
[2025-01-23 01:10] LABS: #Basophils 0.05 10x3/uL (0.0-0.2); #Eosinophils 1.42 10x3/uL (0.0-0.7); #Monocytes 0.92 10x3/uL (0.11-0.59); #Neutrophils 10.27 10x3/uL (1.40-6.50); %Basophils 0.3 % (0.0-1.0); %Eosinophils 9.0 % (0.0-10.0); %Lymphocytes 17.5 % (21.0-51.0); %Monocytes 5.8 % (0.0-10.0); %Neutrophils 65.0 % (42.0-75.0); Hematocrit 33.7 % (42.0-52.0); Hemoglobin 10.3 g/dL (14.0-18.0); Mean Corpuscular Hemoglobin 24.6 pg (27.0-31.0); Mean Corpuscular Volume 80.6 fL (78.0-98.0); Platelet Count 249 10x3/uL (130-400); Red Blood Cell (RBC) Count 4.18 mill/uL (4.70-6.10); White Blood Cell (WBC) Count 15.81 10x3/uL (4.8-10.8)
[2025-01-23 01:47] LABS: BUN (Urea Nitrogen) 143 mg/dL (8.4-25.7)
[2025-01-23 01:48] LABS: Anion Gap 20 mmol/L (10-20); Calc. Creatinine Clearance 70 mL/min (70-130); Calcium 8.1 mg/dL (7.8-10.44); Carbon Dioxide 20 mmol/L (23-31); Chloride 111 mmol/L (98-107); Glucose 258 mg/dL (83-110); Magnesium 1.9 mg/dL (1.6-2.6); Potassium 3.7 mmol/L (3.5-5.1); Sodium 147 mmol/L (136-145)
[2025-01-23] MEDS: Magnesium 2 GM/50 ML(in water) 2 GM in Premix 1 BAG IVPB SCH (02:49)
[2025-01-23] MEDS: Potassium Chloride 40 MEQ in Premix 1 BAG IVPB SCH (02:49)
[2025-01-23 06:29] VITALS: BP 105/50
[2025-01-23 08:06] VITALS: TEMP 98.6
== END 2025-01-23 09:26 | disposition hospice, inpatient (51) | DRG 207 ==
LOC: 2SE 19:28 → CCU 01-11 09:36
PROVIDERS: ADMIT Family Medicine; ATTEND Internal Medicine
PROC: 3E03329 Introduction of Other Anti-infective into Peripheral Vein, Percutaneous Approach (ICD-10-PCS; 2025-01-11)
PROC: 3E033XZ Introduction of Vasopressor into Peripheral Vein, Percutaneous Approach (ICD-10-PCS; 2025-01-11)
PROC: 4A133R1 Monitoring of Arterial Saturation, Peripheral, Percutaneous Approach (ICD-10-PCS; 2025-01-11)
PROC: 5A09557 Assistance with Respiratory Ventilation, Greater than 96 Consecutive Hours, Continuous Positive Airway Pressure (ICD-10-PCS; 2025-01-11)
PROC: 5A1955Z Respiratory Ventilation, Greater than 96 Consecutive Hours (ICD-10-PCS; principal; 2025-01-16)
PROC: 30233J1 Transfusion of Nonautologous Serum Albumin into Peripheral Vein, Percutaneous Approach (ICD-10-PCS; 2025-01-16)
PROC: 0BH17EZ Insertion of Endotracheal Airway into Trachea, Via Natural or Artificial Opening (ICD-10-PCS; 2025-01-16)
DX: J96.21 Acute and chronic respiratory failure with hypoxia (principal); I50.43 Acute on chronic combined systolic (congestive) and diastolic (congestive) heart failure; G93.41 Metabolic encephalopathy; M86.8X7 Other osteomyelitis, ankle and foot; Z68.41 Body mass index [BMI] 40.0-44.9, adult; N17.9 Acute kidney failure, unspecified; E87.20 Acidosis, unspecified; I13.0 Hypertensive heart and chronic kidney disease with heart failure and stage 1 through stage 4 chronic kidney disease, or unspecified chronic kidney disease; I47.20 Ventricular tachycardia, unspecified; E66.01 Morbid (severe) obesity due to excess calories; Z51.5 Encounter for palliative care; Z66 Do not resuscitate; J44.9 Chronic obstructive pulmonary disease, unspecified; E11.69 Type 2 diabetes mellitus with other specified complication; G47.33 Obstructive sleep apnea (adult) (pediatric); E11.51 Type 2 diabetes mellitus with diabetic peripheral angiopathy without gangrene; E78.5 Hyperlipidemia, unspecified; I25.10 Atherosclerotic heart disease of native coronary artery without angina pectoris; I49.3 Ventricular premature depolarization; N18.9 Chronic kidney disease, unspecified; E11.22 Type 2 diabetes mellitus with diabetic chronic kidney disease; R53.81 Other malaise; I25.5 Ischemic cardiomyopathy; E83.42 Hypomagnesemia; E88.09 Other disorders of plasma-protein metabolism, not elsewhere classified; E87.8 Other disorders of electrolyte and fluid balance, not elsewhere classified; E11.65 Type 2 diabetes mellitus with hyperglycemia; R13.12 Dysphagia, oropharyngeal phase; Z88.1 Allergy status to other antibiotic agents; Z95.1 Presence of aortocoronary bypass graft; Z98.890 Other specified postprocedural states; Z89.431 Acquired absence of right foot
CPT/HCPCS: 36415; 36416; 36600; 71045; 76770; 80048; 80053; 80202; 81001; 82140; 82533; 82550; 82570; 82607; 82805; 83735; 83930; 83935; 84300; 84443; 84540; 85025; 85027; 87086; 93005; 93010; 93306; 94002; 94003; 94640; 94660; 97139; A4217; J0282; J0692; J0878; J1650; J1815; J1940; J2250; J2270; J2470; J2704; J2765; J2919; J3373; J3475; J3480; J7050; J7070; J7120; J7620; P9047